=== PATIENT | female | born 1945 | race Caucasian/White ===

== ENCOUNTER 2019-02-14 09:52 | Day surgery (SDC) | payer OTHER ==
[2019-02-14] MEDS ORDERED: diphenhydrAMINE HCL 25 MG CAPSULE (FP) PO PRN (10:28)
[2019-02-14] MEDS ORDERED: HYDROCORTISONE SOD SUCCINATE 100 MG/2 ML VIAL IVPB PRN (10:29)
[2019-02-14] MEDS ORDERED: IRON SUCROSE INJECTION 200 MG in SODIUM CHLORIDE 100 ML IVPB ONE (11:00)
[2019-02-14 11:19] VITALS: BP 142/63; PULSE 77; TEMP 98.2
== END 2019-02-14 12:45 | disposition home or self-care (01) ==
LOC: JASU-ENDO 09:52
PROVIDERS: ATTEND Internal Medicine
PROC: 3E033GC Introduction of Other Therapeutic Substance into Peripheral Vein, Percutaneous Approach (ICD-10-PCS; principal; 2019-02-14)
DX: D50.9 Iron deficiency anemia, unspecified (principal)
CPT/HCPCS: 96365; J1756

== ENCOUNTER 2019-03-11 09:06 | Day surgery (SDC) | payer OTHER ==
[~2019-03-11 09:06] MED LIST: HYDROCORTISONE SOD SUCCINATE 100 MG/2 ML VIAL IVPUSH PRN; IRON SUCROSE INJECTION 200 MG in SODIUM CHLORIDE 100 ML IVPB ONE; diphenhydrAMINE HCL 50 MG CAPSULE PO PRN
[2019-03-11 10:55] VITALS: TEMP 98.9
[2019-03-11 11:21] VITALS: BP 121/64; PULSE 76
== END 2019-03-11 11:25 | disposition home or self-care (01) ==
LOC: JINFUSION 09:06
PROVIDERS: ATTEND Internal Medicine
PROC: 3E033GC Introduction of Other Therapeutic Substance into Peripheral Vein, Percutaneous Approach (ICD-10-PCS; principal; 2019-03-11)
DX: D50.9 Iron deficiency anemia, unspecified (principal)
CPT/HCPCS: 96365; J1756

== ENCOUNTER 2019-08-23 11:45 | Inpatient (IN) | payer OTHER ==
[2019-08-23 12:18] VITALS: BMI 58.9
--- NOTE | 2019-08-23 13:09 | PDOC ---
History of Present Illness - General Chief Complaint: SIRS, Suspected/Possible Stated Complaint: VOMITING/ WEAKNESS Time Seen by Provider: 08/23/19 12:27 - History of Present Illness Initial Comments: Sandra Weller is a 73yo woman with a PMH of HTN, HLD, NIDDM, hypythyroidism, GERD, OA who presents with 3 days of cough, now with nausea and unsteadiness while walking today. She states that she has had the dry cough for the past several days but has otherwise been feeling in her normal state of health. Today , she felt extremely nauseated and did not eat or drink anything today, fearing that she would start vomiting if she did. She went to her PMD this morning and reports she was told that she "probably has a virus" but was sent to the ED for additional workup. Ms Weller additionally reports that she has felt unsteady walking and slightly dizzy today. She denies any sensation of vertigo, and she does not believe that the dizziness worsens with change in position. She endorses a long history of rt ear tinnitus but denies any recent changes in this condition. She additionally denies any recent congestion, rhinorrhea, sore throat, fevers/ chills or other recent symptoms. She does report that she feels dehydrated today. Past History - Past Medical History Allergies/Adverse Reactions: Allergies Allergy/AdvReac Type Severity Reaction Status Date / Time oxycodone Allergy Verified 08/23/19 12:11 tuna oil Allergy Verified 08/23/19 12:11 Home Medications: Ambulatory Orders Aspirin Coated [Ecotrin -] 81 mg PO DAILY 12/27/11 Atorvastatin Ca [Lipitor] 20 mg PO DAILY 12/27/11 Diltiazem [Cardizem -] 420 mg PO DAILY 12/27/11 Glipizide/Metformin HCl [Metaglip 2.5-250 mg Tablet] 2 tab PO DAILY 12/27/11 Levothyroxine Sodium [Synthroid] 25 mcg PO DAILY 12/27/11 Losartan 50Mg/Hctz 12.5MG [Hyzaar -] 50 mg PO DAILY 12/27/11 Esomeprazole Mag Trihydrate [Nexium] 40 mg PO DAILY 09/09/13 Folic Acid 1 mg PO DAILY 02/14/19 Hydralazine HCl 25 mg PO DAILY 02/14/19 COPD: No Diabetes: Yes HTN: Yes Hypercholesterolemia: Yes Thyroid Disease: Yes - Surgical History Orthopedic Surgery: Yes (L FOOT/BILATERAL KNEE) - Psycho Social/Smoking Cessation Hx Smoking Status: No Smoking History: Never smoked Number of Cigarettes Smoked Daily: 0 Hx Alcohol Use: No Drug/Substance Use Hx: No Substance Use Type: None Review of Systems - Review of Systems Comments:: General: + fevers, no chills, no weight or appetite change, + malaise HEENT: No changes in vision, no changes in hearing, no congestion, no sore throat CV: No chest pain, no palpitations, no LE edema Pulm: No SOB, + cough, no wheezing GI: + nausea, no vomiting, no change in bowel habits, no melena : No frequency, no urgency, no dysuria Musc: No back pain, no joint swelling, no recent injury Skin: No rash, no lesions, no erythema Endo: No excessive thirst, no heat/cold intolerance Heme: No unusual bruising or bleeding, no swollen glands Neuro: No syncope, no numbness/tingling, no focal weakness Vasc: No claudication Psych: No recent change in mood, no SI or HI *Physical Exam - Vital Signs Last Vital Signs Temp Pulse Resp BP Pulse Ox 101.3 F H 95 H 20 102/46 L 84 L 08/23/19 12:14 08/23/19 12:14 08/23/19 12:14 08/23/19 12:14 08/23/19 12:14 - Physical Exam General: Comfortable, no acute distress HEENT: Atraumatic, PERRL, EOMI, MMM, voice normal, normal neck ROM Cards: RRR, no murmur appreciated Pulm: Comfortable on room air, clear to auscultation bilaterally Abd: Soft, nontender, nondistended Ext: Atraumatic. No LE edema. ROM intact. WWP Skin: Normal color, no rashes or lesions Neuro: A&Ox3, CN grossly intact, normal speech, motor/sensory grossly intact and symmetric Psych: Mood appropriate to situation ED Treatment Course - LABORATORY CBC & Chemistry Diagram: 08/23/19 13:07 08/23/19 13:07 Medical Decision Making - Medical Decision Making 08/23/19 12:55 Sandra Weller is a 73yo woman with a PMH of HTN, HLD, NIDDM, hypythyroidism, GERD, OA who presents with 3 days of cough, now with nausea and unsteadiness while walking today. She has not had any food or fluids today due to the nausea. She was seen earlier today by her PMD and sent to the ED for additional evaluation. - Hypoxic and febrile on presentation (sats now 89% on RA), dry mouth/lips also noted. Concerning for sepsis, dehydration. Pneumonia v influenza most likely, though could be viral flu-like illness - Sepsis workup - Influenza - IVF, acetaminophen 08/23/19 13:52 - Bedside US completed by Dr Lehman. B-lines on Rt lung US noted - Labs and CXR pending 08/23/19 14:13 - EKG reviewed. NSR, HR 78, normal axis, normal intervals, nonspecific ST abnormality - No leukocytosis. Remainder of labs pending - CXR to be completed. 08/23/19 16:48 - CXR without infiltrate, but pt appears to have pneumonia clinically. Will admit for additional management given hypoxia. Now at 94% w/ 2L by OH - Dr Thomas at bedside to admit Ms Weller Discussed with Dr Dante Gonzalez PGY2 Discharge - Discharge Information Problems reviewed: Yes Clinical Impression/Diagnosis: Hypoxia Sepsis Qualifiers: Sepsis type: sepsis due to unspecified organism Sepsis acute organ dysfunction status: without acute organ dysfunction Qualified Code(s): A41.9 - Sepsis, unspecified organism Pneumonia Qualifiers: Pneumonia type: due to unspecified organism Laterality: unspecified laterality Lung location: unspecified part of lung Qualified Code(s): J18.9 - Pneumonia, unspecified organism - Admission Yes - Follow up/Referral - Patient Discharge Instructions - Post Discharge Activity
[2019-08-23] MEDS ORDERED: ACETAMINOPHEN 1000 MG/100 ML VIAL (NON FORMULARY) IVPB ONE (13:47)
[2019-08-23] MEDS ORDERED: ACETAMINOPHEN INJECTION 100 ML IVPB ONE (13:48)
[2019-08-23 13:51] LABS: BASO % 0.4 % (0-2.0); EOS % 0.2 % (0-4.5); HEMOGLOBIN 12.3 GM/dL (10.7-15.3); LYMPH % 4.6 % (8-40); MCH 27.9 pg (25.7-33.7); MCHC 32.3 g/dl (32.0-36.0); MEAN CELL VOLUME 86.3 fl (80-96); MEAN PLT VOLUME 9.6 fl (7.5-11.1); MONO % 11.8 % (3.8-10.2); PLATELET COUNT 222 K/MM3 (134-434); RDW 20.4 % (11.6-15.6); WHITE BLOOD COUNT 9.2 K/mm3 (4.0-10.0)
[2019-08-23] MEDS ORDERED: SODIUM CHLORIDE 0.9% 500 ML INFUS.BAG IV ONE ×2 (13:58→14:37)
--- NOTE | 2019-08-23 13:59 | EKG ---
Test Reason : Blood Pressure : / mmHG Vent. Rate : 078 BPM Atrial Rate : 078 BPM P-R Int : 168 ms QRS Dur : 076 ms QT Int : 392 ms P-R-T Axes : 034 -26 092 degrees QTc Int : 446 ms POOR DATA QUALITY, INTERPRETATION MAY BE ADVERSELY AFFECTED NORMAL SINUS RHYTHM POSSIBLE LEFT ATRIAL ENLARGEMENT NONSPECIFIC ST ABNORMALITY ABNORMAL ECG Confirmed by GAIL STARK MD ([id number]) on 08/23/2019 1:59:45 PM Referred By: Confirmed By:GAIL STARK MD
[2019-08-23 14:10] LABS: INR 1.07 (0.83-1.09); PROTHROMBIN TIME (PATIENT) 12.6 SEC (9.7-13.0)
--- NOTE | 2019-08-23 14:10 | PDOC ---
Documentation entered by Nidia Coon SCRIBE, acting as scribe for Vincent Howell MD. Vincent Howell MD: This documentation has been prepared by the Jaymie steven Adrianna, SCRIBE, under my direction and personally reviewed by me in its entirety. I confirm that the documentation accurately reflects all work, treatment, procedures, and medical decision making performed by me. Attending Attestation - Resident Resident Name: Shandra Gonzalez - ED Attending Attestation I have performed the following: I have examined & evaluated the patient, The case was reviewed & discussed with the resident, I agree w/resident's findings & plan, Exceptions are as noted - HPI HPI: The patient is a 73 year old female, with a significant PMH of hypertension, hyperlipidemia, psy-hhqajpk-vwghqqzum diabetes, hypothyroid thyroidism, GERD, arthritis and left foot deformity, who presents to the ED for evaluation of cough for 3 days, and nausea and unsteady gait today. Patient endorses a dry cough for the past 3 days. Today, she developed nausea, and has been avoiding eating or drinking anything in fear of vomiting. She additionally reports feeling dizzy and unsteady when ambulating. Patient saw her PCP for these complaints, who advised her to come to the ED for further evaluation. Allergies: Oxycodone, tuna oil Surgical History:Left foot and bilateral knee orthopedic surgery Social History: Denies EtOH, tobacco, or illicit drug use PCP: Dr. Thomas - Physicial Exam PE: GENERAL: The patient is awake, alert, and fully oriented, Nontoxic - in no acute distress. HEAD: Normocephalic, atraumatic. EYES: extraocular movements intact, sclera anicteric, conjunctiva clear. ENT: Normal voice, Moist mucous membranes. NECK: Normal range of motion, supple LUNGS: Breath sounds equal, clear to auscultation bilaterally. No wheezes, no rhonchi, no rales. HEART: Regular rate and rhythm, without murmur, rub or gallop. ABDOMEN: Soft, nontender, No guarding, no rebound.No CVA tenderness EXTREMITIES: Normal range of motion, no edema. No cyanosis. No erythema, or tenderness. NEUROLOGICAL: No facial asymmetry, Normal speech, PSYCH: Normal mood, normal affect. SKIN: Warm, Dry, normal turgor. - Critical Care Time Total Critical Care Time: 60 Critical Care Statement: The care of this patient involved high complexity decision making to prevent further life threatening deterioration of the patient 's condition and/or to evaluate & treat vital organ system(s) failure or risk of failure. - Medical Decision Making 08/23/19 14:13 73 F with cough and nausea. Found to be febrile and hypoxic. Will evaluate for sepsis. Possible PNA. - Labs, cultures - CXR, UA - IVF, tylenol, abx
[2019-08-23 14:14] LABS: ACTIVATED PTT 29.7 SECONDS (25.2-36.5); BILIRUBIN,TOTAL 0.4 mg/dL (0.2-1); BLOOD UREA NITROGEN 16.2 mg/dL (7-18); CALCIUM 9.5 mg/dL (8.5-10.1); CREATININE 1.4 mg/dL (0.55-1.3); POTASSIUM 3.5 mmol/L (3.5-5.1); TOT PROT 7.8 g/dl (6.4-8.2)
[2019-08-23] MEDS ORDERED: CEFTRIAXONE 1,000 MG in DEXTROSE 5%-WATER - 50 ML IVPB ONE (15:16)
[2019-08-23] MEDS ORDERED: AZITHROMYCIN IVPB 500 MG in DEXTROSE 5%-WATER - 250 ML IVPB ONE (15:16)
[2019-08-23 16:35] LABS: PLATELET ESTIMATE ADEQUATE
--- NOTE | 2019-08-23 17:03 | HP ---
Admitting History and Physical - Admission Chief Complaint: 73 y.O F presented today with fever, generalized weakness, nausea, vomiting, difficulty tolerationg PO food/ fluids, cough, SOB, hypoxemia on on RA and was sent to ER [facility] History of Present Illness: DM type 2 on Jentadueto HLD Hypothyroidism Iron deficiency Anemia, GI bleed, HTN on Cardizem, Hydralazine, Losartan HCT Ascending AA repair at [facility] Psoriatic arthritis on Methotrexate Pancreatitis Spinal stenosis, s/p ostheoporotic vertebral fracture- on Prolia. Asthma/COPD Ankle surgeries. Umbilical hernia repair. History Source: Patient, Medical Record Limitations to Obtaining History: No Limitations - Past Medical History MAINTENANCE CHIEF: Yes: Peripheral Neuropathy, Vertigo. No: Alzheimer's, CVA, Dementia, Multiple Sclerosis, Parkinson's, Seizure Cardiovascular: Yes: Aneurysm, HTN, Hyperlipdemia, Murmur. No: CHF Pulmonary: Yes: Asthma. No: O2 Dependent, Sleep Apnea Gastrointestinal: Yes: GI Bleed, Pancreatitis, Peptic Ulcer Disease. No: Ascites, Constipation, Crohn's Disease, Irritable Bowel Disease, Ulcerative Colitis Heme/Onc: Yes: Anemia Rheumatology: Yes: Other (Psoriatic arthritis) Endocrine: Yes: Diabetes Mellitus, Hypothyroidism - Past Surgical History Past Surgical History: Yes: AAA Repair - Smoking History Smoking history: Never smoked Aproximately how many cigarettes per day: 0 - Alcohol/Substance Use Hx Alcohol Use: No - Social History Usual Living Arrangement: Yes: With Spouse Home Medications - Allergies Allergies/Adverse Reactions: Allergies Allergy/AdvReac Type Severity Reaction Status Date / Time oxycodone Allergy Verified 08/23/19 12:11 tuna oil Allergy Verified 08/23/19 12:11 - Home Medications Home Medications: Ambulatory Orders Aspirin Coated [Ecotrin -] 81 mg PO DAILY 12/27/11 Atorvastatin Ca [Lipitor] 20 mg PO DAILY 12/27/11 Diltiazem [Cardizem -] 420 mg PO DAILY 12/27/11 Glipizide/Metformin HCl [Metaglip 2.5-250 mg Tablet] 2 tab PO DAILY 12/27/11 Levothyroxine Sodium [Synthroid] 25 mcg PO DAILY 12/27/11 Losartan 50Mg/Hctz 12.5MG [Hyzaar -] 50 mg PO DAILY 12/27/11 Esomeprazole Mag Trihydrate [Nexium] 40 mg PO DAILY 09/09/13 Folic Acid 1 mg PO DAILY 02/14/19 Hydralazine HCl 25 mg PO DAILY 02/14/19 Family Medical History Family History: Unremarkable Review of Systems - Review of Systems Constitutional: reports: Lethargy, Loss of Appetite, Malaise, Weakness Eyes: reports: No Symptoms HENT: reports: Throat Pain Neck: denies: Decreased ROM, Tenderness Cardiovascular: reports: Shortness of Breath. denies: Chest Pain, Edema Respiratory: reports: Cough, SOB, SOB on Exertion. denies: Hemoptysis, Wheezing Gastrointestinal: reports: Nausea, Vomiting. denies: Abdominal Pain, Bloating Genitourinary: denies: Burning, Discharge, Dysuria Breasts: reports: No Symptoms Reported Musculoskeletal: reports: Back Pain, Decreased ROM, Muscle Pain Integumentary: reports: No Symptoms Neurological: denies: Change in LOC, Change in Speech, Confusion, Seizure, Unsteady Gait, Weakness Endocrine: reports: Excessive Sweating, Intolerance to Cold, Intolerance to Heat Hematology/Lymphatic: denies: Easily Bruised, Excessive Bleeding, Swollen Glands Psychiatric: reports: No Symptoms Physical Examination Vital Signs: Vital Signs Temperature 100.0 F H 08/23/19 15:29 Pulse Rate 71 08/23/19 15:29 Respiratory Rate 18 08/23/19 15:29 Blood Pressure 111/60 08/23/19 15:29 O2 Sat by Pulse Oximetry (%) 97 08/23/19 15:29 Constitutional: Yes: Anxious, Ashen, Diaphoresis, Moderate Distress Eyes: Yes: Conjunctiva Clear, EOM Intact HENT: Yes: Atraumatic, Normocephalic, Pharyngeal Erythema Neck: Yes: Supple, Trachea Midline. No: Lymphadenopathy, Rigid Cardiovascular: Yes: Regular Rate and Rhythm, S1, S2. No: JVD Respiratory: Yes: Regular, CTA Bilaterally, On Nasal O2. No: Accessory Muscle Use Gastrointestinal: Yes: Normal Bowel Sounds, Soft, Hepatomegaly. No: Abdomen, Obese, Ascites, Hypoactive Bowel Sounds, Splenomegaly, Tenderness, Tenderness, Epigastrium ...Rectal Exam: Yes: Deferred Renal/: No: Anuria, Bladder Distention, CVA Tenderness - Left, CVA Tenderness - Right Breast(s): Yes: WNL Musculoskeletal: Yes: Back Pain Extremities: Yes: Deformity. No: Amputation, Calf Tenderness, Cold Peripheral Pulses WNL: No Integumentary: Yes: WNL Neurological: Yes: Alert, Oriented, Tingling, Unsteady Gait, Weakness. No: Aphasia, Facial Droop, Lethargy, Seizure, Unresponsive ...Motor Strength: WNL Psychiatric: Yes: WNL Labs: CBC, BMP 08/23/19 13:07 08/23/19 13:07 Imaging - Results Chest X-ray: Report Reviewed Problem List - Problems (1) Hypoxia Assessment/Plan: O2 supplementation NC Pulm consult CT chest Code(s): R09.02 - HYPOXEMIA (2) Pneumonia Assessment/Plan: CT chest ID consult Iv ceftriaxone. Code(s): J18.9 - PNEUMONIA, UNSPECIFIED ORGANISM Qualifiers: Pneumonia type: due to unspecified organism Laterality: unspecified laterality Lung location: unspecified part of lung Qualified Code(s): J18.9 - Pneumonia, unspecified organism (3) Sepsis Assessment/Plan: Lactate 3.0 repeat :actate afte 30 ml/kg fluids. Bld cx-P Code(s): A41.9 - SEPSIS, UNSPECIFIED ORGANISM Qualifiers: Sepsis type: sepsis due to unspecified organism Sepsis acute organ dysfunction status: without acute organ dysfunction Qualified Code(s): A41.9 - Sepsis, unspecified organism (4) Arthritis Assessment/Plan: Hold Metotrexate for now. Code(s): M19.90 - UNSPECIFIED OSTEOARTHRITIS, UNSPECIFIED SITE (5) Diabetes 1.5, managed as type 1 Assessment/Plan: BGM Sliding scale Levemir 10 units Qd Code(s): E13.9 - OTHER SPECIFIED DIABETES MELLITUS WITHOUT COMPLICATIONS (6) HTN (hypertension) Assessment/Plan: Cardizem, hydralazine, ARB PO. Code(s): I10 - ESSENTIAL (PRIMARY) HYPERTENSION Qualifiers: Hypertension type: essential hypertension Qualified Code(s): I10 - Essential (primary) hypertension
[2019-08-23] MEDS ORDERED: ACETAMINOPHEN 500 MG TABLET (FP) PO PRN (17:23)
[2019-08-23] MEDS ORDERED: ONDANSETRON 4 MG/2 ML VIAL IVPB PRN (17:24)
--- NOTE | 2019-08-23 18:21 | PN ---
Progress Note (short form) - Note Progress Note: ID consult dictated 73 yo female admitted from home with dizziness and nausea this am she has had uri symptoms with runny nose and mild cough for last 2-3 days no diarrhea, no dysuria no chills takes humira and methotrexate for her psoriatic arthritis history of aneurysm repair April 2018 found to be febrile in ED, also hypoxia lactic acid 3- no better after ivf going for chest ct got rocephin/ziithromax in ED sepsis r/o pneumonia immunocompromised host by meds blood cultures urinary antigens chest ct UA and urine culture vancomycin rocephin/zithromax to continue Problem List - Problems (1) Sepsis Code(s): A41.9 - SEPSIS, UNSPECIFIED ORGANISM Qualifiers: Sepsis type: sepsis due to unspecified organism Sepsis acute organ dysfunction status: without acute organ dysfunction Qualified Code(s): A41.9 - Sepsis, unspecified organism (2) Pneumonia Code(s): J18.9 - PNEUMONIA, UNSPECIFIED ORGANISM Qualifiers: Pneumonia type: due to unspecified organism Laterality: unspecified laterality Lung location: unspecified part of lung Qualified Code(s): J18.9 - Pneumonia, unspecified organism (3) Immunocompromised state due to drug therapy Code(s): Z79.899 - OTHER SENIOR CARE (CURRENT) DRUG THERAPY
[2019-08-23] MEDS ORDERED: VANCOMYCIN 1 GRAM (PRE-DOCKED) 1,000 MG/250 ML BAG IVPB ONE (18:25)
--- NOTE | 2019-08-23 19:58 | CONS ---
DATE OF CONSULTATION: 08/23/2019 INFECTIOUS DISEASE CONSULTATION REQUESTED BY: Mono Thomas MD This is a 73-year-old female with a history of hypertension, bij-[id number]-rexnycmvt diabetes mellitus and psoriatic arthritis. She presents to the ER today with complaints of dizziness for the last two or three days. She has been feeling like she has had a upper respiratory tract infection with a stuffed nose, minimal cough. This morning, she started having nausea and dizziness but she denies any chills at home. She does not recall having any fever. She has not vomited. She has no diarrhea. There is no history of any travel. She has not had any sick contacts. She denies abdominal pain or chest pain. She lives with her , who is well. She saw her PCP for these complaints, who sent her to the ER. She had fever of 101 in the ER on arrival with a heart rate of 95. Blood pressure was 102/46. Her O2 saturation on admission was 84% with improvement in her fever. Her current temperature was 100 with an O2 saturation of 97%. She received IV hydration in the ER with improvement. She has now consumed a whole bottle of water and is feeling somewhat improved. PAST MEDICAL HISTORY: Notable for type 2 diabetes, hyperlipidemia, hypothyroidism, anemia, GI bleed, hypertension, psoriatic arthritis, pancreatitis, asthma, COPD. PAST SURGICAL HISTORY: Status post ascending aorta repair at [facility] in April 2018. The surgery went very well. There were no complications. She has had surgery on her left foot and has had an umbilical hernia repair. CURRENT MEDICATIONS: Ecotrin, atorvastatin, Cardizem, Metaglip, Synthroid, Hyzaar, Nexium, folic acid and hydralazine. She is also on weekly methotrexate and takes Humira every two weeks. SOCIAL HISTORY: She is originally from [place]. There is no history of cigarette or substance use. She lives with her spouse. FAMILY HISTORY: Unremarkable. REVIEW OF SYSTEMS: She denies pharyngitis. She has no headache. She reports minimal cough and denies any hemoptysis. She is not wheezing. She notes nausea but on vomiting. There is no abdominal pain or diarrhea. She has no dysuria or flank pain. She has no skin rash or breaks in her skin. PHYSICAL EXAMINATION: VITALS: T-max is 101.8, current temperature is 100, pulse is 71, blood pressure 111/60, respiratory rate 18, oxygen saturation 97% on 2 liters. HEENT: Normocephalic. Eyes are anicteric. She has no conjunctival hemorrhages. Her mouth is without any pharyngitis. NECK: Supple. There are no meningeal signs. LUNGS: Clear to auscultation. HEART: Regular rate and rhythm. ABDOMEN: Soft, nontender. No CVA or spinal tenderness. EXTREMITIES: No edema. Her left foot has a deformity. SKIN: There is no skin breakdown. She has no rash. LABS: White count is 9.2, hemoglobin 12.3, platelets of 222,000 with 83% lymphocytes. Her INR is 1. BUN and creatinine are 16 and 1.4. Lactic acid is 3. LFTs are normal. Influenza screen is negative. Blood cultures have been sent and are pending. To my reading, her chest x-ray is negative. IN SUMMARY: This is an elderly woman, immunocompromised by virtue of her psoriatic arthritis, on methotrexate and Humira. She presents with what appears to be a viral syndrome with URI symptoms and now with dizziness and fever of unclear etiology. She has been given fluids. She has been given ceftriaxone and Zithromax. A CAT scan of her chest has been ordered. She is now resting quite comfortably. We will give her one dose of vancomycin as well, as the source of her sepsis is unclear. She needs a urinalysis and urine culture. Would also obtain a Legionella urinary antigen and follow up on the CAT scan. QUINTON WALTON M.D. [id number]
[2019-08-23] MEDS: hydrALAZINE HCL 25 MG TABLET (FP) PO SCH (21:48)
[2019-08-23] MEDS: ATORVASTATIN CA 20 MG TABLET (FP) PO SCH (21:49)
[2019-08-23] MEDS: DOCUSATE SODIUM 100 MG CAPSULE (FP) PO SCH (21:49)
[2019-08-23] MEDS: INSULIN SLIDING SCALE (NOVOLOG) 1 VIAL SQ SCH (21:56)
[2019-08-24] MEDS: hydrALAZINE HCL 25 MG TABLET (FP) PO SCH ×3 (06:06→21:11)
[2019-08-24] MEDS: INSULIN SLIDING SCALE (NOVOLOG) 1 VIAL SQ SCH ×4 (06:06→21:10)
[2019-08-24 09:52] LABS: BASO % 0.3 % (0-2.0); EOS % 0.3 % (0-4.5); HEMATOCRIT 36.6 % (32.4-45.2); HEMOGLOBIN 11.9 GM/dL (10.7-15.3); LYMPH % 14.3 % (8-40); MCH 27.7 pg (25.7-33.7); MCHC 32.4 g/dl (32.0-36.0); MEAN CELL VOLUME 85.4 fl (80-96); MEAN PLT VOLUME 8.8 fl (7.5-11.1); NEUT % 68.1 % (42.8-82.8); PLATELET COUNT 199 K/MM3 (134-434); RBC 4.29 M/mm3 (3.60-5.2); RDW 19.6 % (11.6-15.6); WHITE BLOOD COUNT 6.3 K/mm3 (4.0-10.0)
[2019-08-24] MEDS ORDERED: TIOTROPIUM BROMIDE 2.5 MCG (SPIRIVA) RESPIMAT INHALER IH SCH (10:00)
[2019-08-24 10:19] LABS: ALBUMIN 3.6 g/dl (3.4-5.0); BILIRUBIN,TOTAL 0.4 mg/dL (0.2-1); CALCIUM 8.7 mg/dL (8.5-10.1); CREATININE 0.9 mg/dL (0.55-1.3); MAGNESIUM 1.7 mg/dL (1.8-2.4); PHOSPHOROUS 2.6 mg/dL (2.5-4.9); TOT PROT 6.8 g/dl (6.4-8.2)
[2019-08-24] MEDS ORDERED: cefTRIAXone SODIUM 1 GM VIAL ONE (10:32)
[2019-08-24] MEDS ORDERED: DEXTROSE 5%-WATER - 50 ML IVPB ONE (10:32)
[2019-08-24 10:49] LABS: POTASSIUM 2.9 mmol/L (3.5-5.1)
[2019-08-24] MEDS: PANTOPRAZOLE 40 MG TABLET PO SCH (11:06)
[2019-08-24] MEDS: LOSARTAN POTASSIUM 50 MG TABLET (FP) PO SCH (11:06)
[2019-08-24] MEDS: MAGNESIUM OXIDE 400 MG TABLET (FP) PO SCH (11:06)
[2019-08-24] MEDS: ASPIRIN COATED 81 MG TABLET.EC PO SCH (11:06)
[2019-08-24] MEDS: CEFTRIAXONE 1 GM in DEXTROSE 5%-WATER - 50 ML IVPB SCH (11:07)
[2019-08-24] MEDS: LACTATED RINGERS SOLUTION 1,000 ML/1,000 ML INFUS.BAG IV SCH ×3 (11:23→17:45)
--- NOTE | 2019-08-24 11:32 | PN ---
Progress Note (short form) - Note Progress Note: minimal cough minimal nausea feels better didn't sleep due to roommate not dizzy received influenza vaccine reports taking humira every two weeks, methotrexate every week and oral potassium daily no diarrhea ate breakfast still some lowgrade fevers Vital Signs Period Temp Pulse Resp BP Sys/Grover Pulse Ox Last 24 Hr 99 F-101.3 F 62-96 18-20 102-144/46-62 84-97 cor-rrr lungs clear abd soft,nt ext no edema chest ct with small RLL infiltrate, possible RUL early infiltrate CBC, BMP 08/24/19 09:00 08/24/19 09:00 Microbiology 08/24/19 06:22 Urine For Antigen Detection Legionella Antigen - Preliminary 08/24/19 06:22 Urine For Antigen Detection Streptococcus pneumoniae Antigen (M - Preliminary a/p sepsis pneumonia RLL immunocompromised host by meds for psoriatic arthritis history of aneurysm repair blood cultures urinary antigens UA and urine culture-never sent! d/w nursing staff vancomycin given - f/u cultures rocephin/zithromax to continue
[2019-08-24] MEDS ORDERED: MAGNESIUM SULF 50% (8.12 MEQ/2 ML-1 GM VIAL) IVPB ONE ×2 (11:36→18:00)
--- NOTE | 2019-08-24 11:43 | PN ---
Progress Note, Physician Chief Complaint: sob History of Present Illness: patient feeling ok today, a little better, less SOB, still coughing - Current Medication List Current Medications: Active Medications Acetaminophen (Tylenol -) 500 mg PO Q6H PRN PRN Reason: FEVER Aspirin (Ecotrin -) 81 mg PO DAILY [facility] Last Admin: 08/24/19 11:06 Dose: 81 mg Atorvastatin Calcium (Lipitor -) 20 mg PO HS [facility] Last Admin: 08/23/19 21:49 Dose: 20 mg Diltiazem HCl (Cardizem Cd -) 180 mg PO DAILY [facility] Docusate Sodium (Colace -) 300 mg PO HS [facility] Last Admin: 08/23/19 21:49 Dose: 300 mg Folic Acid (Folic Acid -) 1 mg PO DAILY [facility] Hydralazine HCl (Apresoline -) 25 mg PO TID [facility] Last Admin: 08/24/19 06:06 Dose: 25 mg Ceftriaxone Sodium 1 gm/ (Dextrose) 50 mls @ 200 mls/hr IVPB DAILY [facility]; Protocol Last Admin: 08/24/19 11:07 Dose: 200 mls/hr Lactated Ringer's (Lactated Ringers Solution) 1,000 ml in 1,000 mls @ 83 mls/ hr IV ASDIR [facility] Last Admin: 08/24/19 11:23 Dose: 83 mls/hr Azithromycin 500 mg/ Dextrose 250 mls @ 250 mls/hr IVPB Q24H [facility] Potassium Chloride (Potassium Chloride 10 Meq Premix Ivpb -) 10 meq in 100 mls @ 100 mls/hr IVPB Q60M [facility] Stop: 08/24/19 14:44 Insulin Aspart (Novolog Vial Sliding Scale -) 1 vial SQ ACHS [facility]; Protocol Last Admin: 08/24/19 06:06 Dose: Not Given Levothyroxine Sodium (Synthroid -) 25 mcg PO DAILY@0700 [facility] Losartan Potassium (Cozaar -) 50 mg PO DAILY [facility] Last Admin: 08/24/19 11:06 Dose: 50 mg Magnesium Oxide (Mag-Ox -) 400 mg PO DAILY [facility] Last Admin: 08/24/19 11:06 Dose: 400 mg Magnesium Sulfate (Magnesium Sulfate) 1 gm IVPB ONCE ONE Stop: 08/24/19 11:37 Metformin HCl (Glucophage Xr -) 750 mg PO DAILY@0700 [facility] Pantoprazole Sodium (Protonix -) 40 mg PO DAILY [facility] Last Admin: 08/24/19 11:06 Dose: 40 mg Potassium Chloride (K-Dur -) 40 meq PO ONCE ONE Stop: 08/24/19 11:37 Potassium Chloride (K-Dur -) 20 meq PO DAILY [facility] Tiotropium Ambrose (Spiriva Respimat) 2 puff IH DAILY [facility] Last Admin: 08/24/19 11:08 Dose: 2 puff - Objective Vital Signs: Vital Signs Temperature 99.2 F 08/24/19 09:00 Pulse Rate 82 08/24/19 09:00 Respiratory Rate 18 08/24/19 09:00 Blood Pressure 131/58 L 08/24/19 09:00 O2 Sat by Pulse Oximetry (%) 96 08/23/19 21:00 Constitutional: Yes: Well Nourished, No Distress, Calm Cardiovascular: Yes: WNL, Regular Rate and Rhythm Respiratory: Yes: Cough, Rhonchi (at bases), Other (good air entry). No: Accessory Muscle Use, Poor Air Entry Gastrointestinal: Yes: WNL, Normal Bowel Sounds, Soft Extremities: Yes: WNL Edema: No Labs: CBC, BMP 08/24/19 09:00 08/24/19 09:00 INR, PTT INR 1.07 (0.83-1.09) 08/23/19 13:07 Problem List - Problems (1) Diabetes 1.5, managed as type 1 Code(s): E13.9 - OTHER SPECIFIED DIABETES MELLITUS WITHOUT COMPLICATIONS (2) HTN (hypertension) Code(s): I10 - ESSENTIAL (PRIMARY) HYPERTENSION Qualifiers: Hypertension type: essential hypertension Qualified Code(s): I10 - Essential (primary) hypertension (3) Hypoxia Code(s): R09.02 - HYPOXEMIA (4) Pneumonia Code(s): J18.9 - PNEUMONIA, UNSPECIFIED ORGANISM Qualifiers: Pneumonia type: due to unspecified organism Laterality: unspecified laterality Lung location: unspecified part of lung Qualified Code(s): J18.9 - Pneumonia, unspecified organism (5) Sepsis Code(s): A41.9 - SEPSIS, UNSPECIFIED ORGANISM Qualifiers: Sepsis type: sepsis due to unspecified organism Sepsis acute organ dysfunction status: without acute organ dysfunction Qualified Code(s): A41.9 - Sepsis, unspecified organism Assessment/Plan Assessment: Sepsis RLL pnemonia Psoriatic arthritis AAA repair DM HTN Hypokalemia Hypomagnesemia Plan: -continue with rocephin/azithro, given vanco-immunocompromised -check serologies, urine anitgens -cultures pending -replete lytes and monitor -resume metformin, hold gliptins, ISS for coverage -resume home BP meds -ID eval
[2019-08-24] MEDS ORDERED: POTASSIUM CHLORIDE TABS 20 MEQ TABLET.ER (FP) PO ONE (11:45)
[2019-08-24] MEDS: KCL 10 MEQ IVPB 10 MEQ/100 ML INFUS.BAG IVPB SCH ×3 (12:50→21:11)
[2019-08-24] MEDS: FOLIC ACID 1 MG TABLET (FP) PO SCH (12:50)
--- NOTE | 2019-08-24 12:54 | CON.PULM ---
Consult Consult Specialty:: PULMONARY Referred by:: PMD Reason for Consultation:: SOB/COUGH - History of Present Illness Chief Complaint: SOB/COUGH History of Present Illness: 73yo woman with a PMH of HTN, HLD, NIDDM, hypythyroidism, GERD, OA who presents with 3 days of cough, now with nausea and unsteadiness while walking today. She states that she has had the dry cough for the past several days but has otherwise been feeling in her normal state of health. She went to her PMD this morning and reports she was told that she "probably has a virus" but was sent to the ED for additional workup. - History Source History Provided By: Patient, Medical Record Limitations to Obtaining History: Language Barrier - Past Medical History [employer]: Yes: Peripheral Neuropathy, Vertigo. No: Alzheimer's, CVA, Dementia, Multiple Sclerosis, Parkinson's, Seizure Cardio/Vascular: Yes: Aneurysm, HTN, Hyperlipdemia, Murmur. No: CHF Pulmonary: Yes: Asthma. No: O2 Dependent, Sleep Apnea Gastrointestinal: Yes: GI Bleed, Pancreatitis, Peptic Ulcer Disease. No: Ascites, Constipation, Crohn's Disease, Irritable Bowel Disease, Ulcerative Colitis Rheumatology: Yes: Other (Psoriatic arthritis) Endocrine: Yes: Diabetes Mellitus, Hypothyroidism - Past Surgical History Past Surgical History: Yes: AAA Repair - Alcohol/Substance Use Hx Alcohol Use: No - Smoking History Smoking history: Never smoked Aproximately how many cigarettes per day: 0 Home Medications - Allergies Allergies/Adverse Reactions: Allergies Allergy/AdvReac Type Severity Reaction Status Date / Time oxycodone Allergy Verified 08/23/19 12:11 tuna oil Allergy Verified 08/23/19 12:11 - Home Medications Home Medications: Ambulatory Orders Aspirin Coated [Ecotrin -] 81 mg PO DAILY 12/27/11 Atorvastatin Ca [Lipitor] 20 mg PO DAILY 12/27/11 Diltiazem [Cardizem -] 420 mg PO DAILY 12/27/11 Glipizide/Metformin HCl [Metaglip 2.5-250 mg Tablet] 2 tab PO DAILY 12/27/11 Levothyroxine Sodium [Synthroid] 25 mcg PO DAILY 12/27/11 Losartan 50Mg/Hctz 12.5MG [Hyzaar -] 50 mg PO DAILY 12/27/11 Esomeprazole Mag Trihydrate [Nexium] 40 mg PO DAILY 09/09/13 Folic Acid 1 mg PO DAILY 02/14/19 Hydralazine HCl 25 mg PO DAILY 02/14/19 Family Medical History Family History: Unremarkable Review of Systems - Review of Systems Respiratory: reports: Cough, Exercise Intolerance, SOB on Exertion. denies: Hemoptysis, Wheezing Gastrointestinal: reports: Abdominal Pain, Nausea, Vomiting Physical Exam Vital Sings: Vital Signs Temperature 99.2 F 08/24/19 09:00 Pulse Rate 82 08/24/19 09:00 Respiratory Rate 18 08/24/19 09:00 Blood Pressure 131/58 L 08/24/19 09:00 O2 Sat by Pulse Oximetry (%) 96 08/23/19 21:00 Constitutional: Yes: Calm Eyes: Yes: EOM Intact HENT: Yes: Normocephalic Neck: Yes: Trachea Midline Cardiovascular: Yes: Regular Rate and Rhythm, S1, S2 Respiratory: Yes: Diminished Gastrointestinal: Yes: Normal Bowel Sounds Edema: No Labs: CBC, BMP 08/24/19 09:00 08/24/19 09:00 Imaging - Results Chest X-ray: Report Reviewed, Image Reviewed Cat Scan: Report Reviewed, Image Reviewed Problem List - Problems (1) COPD (chronic obstructive pulmonary disease) Code(s): J44.9 - CHRONIC OBSTRUCTIVE PULMONARY DISEASE, UNSPECIFIED (2) Diabetes 1.5, managed as type 1 Code(s): E13.9 - OTHER SPECIFIED DIABETES MELLITUS WITHOUT COMPLICATIONS (3) HTN (hypertension) Code(s): I10 - ESSENTIAL (PRIMARY) HYPERTENSION Qualifiers: Hypertension type: essential hypertension Qualified Code(s): I10 - Essential (primary) hypertension (4) Hypoxia Code(s): R09.02 - HYPOXEMIA (5) Pneumonia Code(s): J18.9 - PNEUMONIA, UNSPECIFIED ORGANISM Qualifiers: Pneumonia type: due to unspecified organism Laterality: unspecified laterality Lung location: unspecified part of lung Qualified Code(s): J18.9 - Pneumonia, unspecified organism Assessment/Plan O2 NEEDED/DUONEB/CHEST PT/ANTIBIOTICS GYLCEMIC CONTROL RAPID FLU NEGATIVE F/U CT CHEST OUTPATIENT 6 WEEKS Shelley GLASER MD
[2019-08-24 13:56] LABS: ANISOCYTOSIS 1+; MACROCYTOSIS 1+; OVALOCYTE 1+; PLATELET ESTIMATE NORMAL
[2019-08-24] MEDS: ALBUTEROL SO4 2.5/IPRATROPIUM 0.5 INH SOL 3 ML VIAL.NEB. NEB SCH ×2 (14:20→20:00)
[2019-08-24] MEDS: AZITHROMYCIN IVPB 500 MG/250 ML BAG IVPB SCH (16:04)
[2019-08-24] MEDS: DOCUSATE SODIUM 100 MG CAPSULE (FP) PO SCH (21:10)
[2019-08-24] MEDS: ATORVASTATIN CA 20 MG TABLET (FP) PO SCH (21:11)
[2019-08-25] MEDS: LACTATED RINGERS SOLUTION 1,000 ML/1,000 ML INFUS.BAG IV SCH ×2 (06:21→18:53)
[2019-08-25] MEDS: INSULIN SLIDING SCALE (NOVOLOG) 1 VIAL SQ SCH ×4 (06:33→22:03)
[2019-08-25] MEDS: LEVOTHYROXINE NA 25 MCG TABLET (FP) PO SCH (06:34)
[2019-08-25] MEDS: hydrALAZINE HCL 25 MG TABLET (FP) PO SCH ×3 (06:34→22:02)
[2019-08-25] MEDS: ALBUTEROL SO4 2.5/IPRATROPIUM 0.5 INH SOL 3 ML VIAL.NEB. NEB SCH ×3 (08:12→20:38)
[2019-08-25 08:32] LABS: BASO % 0.6 % (0-2.0); EOS % 1.1 % (0-4.5); HEMATOCRIT 36.4 % (32.4-45.2); HEMOGLOBIN 12.1 GM/dL (10.7-15.3); LYMPH % 18.5 % (8-40); MCH 28.6 pg (25.7-33.7); MCHC 33.2 g/dl (32.0-36.0); MEAN PLT VOLUME 9.1 fl (7.5-11.1); MONO % 20.8 % (3.8-10.2); PLATELET COUNT 197 K/MM3 (134-434); RBC 4.23 M/mm3 (3.60-5.2); RDW 20.3 % (11.6-15.6); WHITE BLOOD COUNT 5.3 K/mm3 (4.0-10.0)
[2019-08-25 09:04] LABS: BLOOD UREA NITROGEN 8.5 mg/dL (7-18); CALCIUM 8.7 mg/dL (8.5-10.1); CREATININE 0.8 mg/dL (0.55-1.3)
[2019-08-25] MEDS ORDERED: POTASSIUM CHLORIDE TABS 20 MEQ TABLET.ER (FP) PO ONE (10:15)
[2019-08-25 10:42] LABS: ANISOCYTOSIS 1+; MACROCYTOSIS 1+; PLATELET ESTIMATE NORMAL
[2019-08-25] MEDS ORDERED: DEXTROSE 5%-WATER - 50 ML IVPB ONE (10:56)
[2019-08-25] MEDS ORDERED: cefTRIAXone SODIUM 1 GM VIAL ONE (10:56)
[2019-08-25] MEDS: PANTOPRAZOLE 40 MG TABLET PO SCH (11:32)
[2019-08-25] MEDS: FOLIC ACID 1 MG TABLET (FP) PO SCH (11:32)
[2019-08-25] MEDS: POTASSIUM CHLORIDE TABS 20 MEQ TABLET.ER (FP) PO ONE ×2 (11:32→12:22)
[2019-08-25] MEDS: MAGNESIUM OXIDE 400 MG TABLET (FP) PO SCH (11:33)
[2019-08-25] MEDS: ASPIRIN COATED 81 MG TABLET.EC PO SCH (11:33)
[2019-08-25] MEDS: LOSARTAN POTASSIUM 50 MG TABLET (FP) PO SCH (11:33)
[2019-08-25] MEDS: POTASSIUM CHLORIDE TABS 20 MEQ TABLET.ER (FP) PO SCH (11:34)
[2019-08-25] MEDS: CEFTRIAXONE 1 GM in DEXTROSE 5%-WATER - 50 ML IVPB SCH (11:34)
--- NOTE | 2019-08-25 11:40 | PN ---
Progress Note (short form) - Note Progress Note: PULMONARY SITTING UP FAMILY PRESENT WANTS TO GO HOME VSS/AFEBRILE Constitutional: Yes: Calm Eyes: Yes: EOM Intact HENT: Yes: Normocephalic Neck: Yes: Trachea Midline Cardiovascular: Yes: Regular Rate and Rhythm, S1, S2 Respiratory: Yes: Diminished Gastrointestinal: Yes: Normal Bowel Sounds Edema: No Labs: NOTED CHECK PRE/POST AMB SPO2 R/A - Problems (1) COPD (chronic obstructive pulmonary disease) Code(s): J44.9 - CHRONIC OBSTRUCTIVE PULMONARY DISEASE, UNSPECIFIED (2) Diabetes 1.5, managed as type 1 Code(s): E13.9 - OTHER SPECIFIED DIABETES MELLITUS WITHOUT COMPLICATIONS (3) HTN (hypertension) Code(s): I10 - ESSENTIAL (PRIMARY) HYPERTENSION Qualifiers: Hypertension type: essential hypertension Qualified Code(s): I10 - Essential (primary) hypertension (4) Hypoxia Code(s): R09.02 - HYPOXEMIA (5) Pneumonia Code(s): J18.9 - PNEUMONIA, UNSPECIFIED ORGANISM Qualifiers: Pneumonia type: due to unspecified organism Laterality: unspecified laterality Lung location: unspecified part of lung Qualified Code(s): J18.9 - Pneumonia, unspecified organism Assessment/Plan O2 NEEDED/DUONEB/CHEST PT/ANTIBIOTICS GYLCEMIC CONTROL RAPID FLU NEGATIVE F/U CT CHEST OUTPATIENT 6 WEEKS CHECK PRE/POST SPO2 R/A NO OBJECTION TO DISCHARGE PLANNING Shelley GLASER MD Problem List - Problems (1) COPD (chronic obstructive pulmonary disease) Code(s): J44.9 - CHRONIC OBSTRUCTIVE PULMONARY DISEASE, UNSPECIFIED (2) Diabetes 1.5, managed as type 1 Code(s): E13.9 - OTHER SPECIFIED DIABETES MELLITUS WITHOUT COMPLICATIONS (3) HTN (hypertension) Code(s): I10 - ESSENTIAL (PRIMARY) HYPERTENSION Qualifiers: Hypertension type: essential hypertension Qualified Code(s): I10 - Essential (primary) hypertension (4) Hypoxia Code(s): R09.02 - HYPOXEMIA (5) Pneumonia Code(s): J18.9 - PNEUMONIA, UNSPECIFIED ORGANISM Qualifiers: Pneumonia type: due to unspecified organism Laterality: unspecified laterality Lung location: unspecified part of lung Qualified Code(s): J18.9 - Pneumonia, unspecified organism
--- NOTE | 2019-08-25 12:14 | PN ---
Progress Note (short form) - Note Progress Note: low grade temperature overnight cough resolved, now eating reports taking humira every two weeks, methotrexate every week and oral potassium daily no diarrhea Vital Signs Period Temp Pulse Resp BP Sys/Grover Pulse Ox Last 24 Hr 98.8 F-99.7 F 73-82 18-18 119-156/49-88 95 cor-rrr lungs clear abd soft,nt ext no edema chest ct with small RLL infiltrate, possible RUL early infiltrate CBC, BMP 08/25/19 07:00 08/25/19 07:00 Microbiology 08/23/19 13:07 Blood - Peripheral Venous Blood Culture - Preliminary NO GROWTH OBTAINED AFTER 24 HOURS, INCUBATION TO CONTINUE FOR 4 DAYS. 08/23/19 13:07 Blood - Peripheral Venous Blood Culture - Preliminary NO GROWTH OBTAINED AFTER 24 HOURS, INCUBATION TO CONTINUE FOR 4 DAYS. 08/24/19 06:22 Urine For Antigen Detection Legionella Antigen - Final 08/24/19 06:22 Urine For Antigen Detection Streptococcus pneumoniae Antigen (M - Final a/p sepsis pneumonia RLL immunocompromised host by meds for psoriatic arthritis history of aneurysm repair doing well would continue rocephin/zithromax still requiring oxygen consider d/c home tomorrow if she continues to improve
--- NOTE | 2019-08-25 15:15 | PN ---
Progress Note, Physician Chief Complaint: sob History of Present Illness: patient feeling much better today, walking around halls, wants to go home - Current Medication List Current Medications: Active Medications Acetaminophen (Tylenol -) 500 mg PO Q6H PRN PRN Reason: FEVER Albuterol/Ipratropium (Duoneb -) 1 amp NEB RTID [facility] Last Admin: 08/25/19 14:18 Dose: 1 amp Aspirin (Ecotrin -) 81 mg PO DAILY [facility] Last Admin: 08/25/19 11:33 Dose: 81 mg Atorvastatin Calcium (Lipitor -) 20 mg PO [facility] Last Admin: 08/24/19 21:11 Dose: 20 mg Diltiazem HCl (Cardizem Cd -) 180 mg PO DAILY [facility] Last Admin: 08/24/19 17:45 Dose: 180 mg Docusate Sodium (Colace -) 300 mg PO [facility] Last Admin: 08/24/19 21:10 Dose: 300 mg Folic Acid (Folic Acid -) 1 mg PO DAILY [facility] Last Admin: 08/25/19 11:32 Dose: 1 mg Hydralazine HCl (Apresoline -) 25 mg PO TID [facility] Last Admin: 08/25/19 06:34 Dose: 25 mg Ceftriaxone Sodium 1 gm/ (Dextrose) 50 mls @ 200 mls/hr IVPB DAILY [facility]; Protocol Last Admin: 08/25/19 11:34 Dose: 200 mls/hr Lactated Ringer's (Lactated Ringers Solution) 1,000 ml in 1,000 mls @ 83 mls/ hr IV ASDIR [facility] Last Admin: 08/25/19 06:21 Dose: 83 mls/hr Azithromycin (Zithromax 500mg Ivpb (Pre-Docked)) 500 mg in 250 mls @ 250 mls/ hr IVPB Q24H [facility] Last Admin: 08/24/19 16:04 Dose: 250 mls/hr Insulin Aspart (Novolog Vial Sliding Scale -) 1 vial SQ ACHS [facility]; Protocol Last Admin: 08/25/19 11:34 Dose: Not Given Levothyroxine Sodium (Synthroid -) 25 mcg PO DAILY@0700 [facility] Last Admin: 08/25/19 06:34 Dose: 25 mcg Losartan Potassium (Cozaar -) 50 mg PO DAILY [facility] Last Admin: 08/25/19 11:33 Dose: 50 mg Magnesium Oxide (Mag-Ox -) 400 mg PO DAILY [facility] Last Admin: 08/25/19 11:33 Dose: 400 mg Metformin HCl (Glucophage Xr -) 750 mg PO DAILY@0700 [facility] Last Admin: 08/25/19 06:34 Dose: 750 mg Pantoprazole Sodium (Protonix -) 40 mg PO DAILY [facility] Last Admin: 08/25/19 11:32 Dose: 40 mg Potassium Chloride (K-Dur -) 20 meq PO DAILY [facility] Last Admin: 08/25/19 11:34 Dose: 20 meq - Objective Vital Signs: Vital Signs Temperature 98.9 F 08/25/19 10:00 Pulse Rate 93 H 08/25/19 13:53 Respiratory Rate 18 08/25/19 10:00 Blood Pressure 119/49 L 08/25/19 10:00 O2 Sat by Pulse Oximetry (%) 94 L 08/25/19 13:53 Constitutional: Yes: Well Nourished, No Distress, Calm Cardiovascular: Yes: WNL, Regular Rate and Rhythm Respiratory: Yes: On Nasal O2, Rhonchi (rll, mild). No: Accessory Muscle Use, Cough, SOB, SOB on Exertion Gastrointestinal: Yes: WNL, Normal Bowel Sounds, Soft Extremities: Yes: WNL Edema: No Labs: CBC, BMP 08/25/19 07:00 08/25/19 07:00 INR, PTT INR 1.07 (0.83-1.09) 08/23/19 13:07 Problem List - Problems (1) Diabetes 1.5, managed as type 1 Code(s): E13.9 - OTHER SPECIFIED DIABETES MELLITUS WITHOUT COMPLICATIONS (2) HTN (hypertension) Code(s): I10 - ESSENTIAL (PRIMARY) HYPERTENSION Qualifiers: Hypertension type: essential hypertension Qualified Code(s): I10 - Essential (primary) hypertension (3) Hypoxia Code(s): R09.02 - HYPOXEMIA (4) Pneumonia Code(s): J18.9 - PNEUMONIA, UNSPECIFIED ORGANISM Qualifiers: Pneumonia type: due to unspecified organism Laterality: unspecified laterality Lung location: unspecified part of lung Qualified Code(s): J18.9 - Pneumonia, unspecified organism (5) Sepsis Code(s): A41.9 - SEPSIS, UNSPECIFIED ORGANISM Qualifiers: Sepsis type: sepsis due to unspecified organism Sepsis acute organ dysfunction status: without acute organ dysfunction Qualified Code(s): A41.9 - Sepsis, unspecified organism Assessment/Plan Assessment: Sepsis RLL pnemonia Psoriatic arthritis AAA repair DM HTN Hypokalemia Hypomagnesemia Plan: -continue with current abx, transition to PO in AM -cultures neg -replete lytes and monitor -cw current regimen -ID eval
[2019-08-25] MEDS: AZITHROMYCIN IVPB 500 MG/250 ML BAG IVPB SCH (15:26)
[2019-08-25] MEDS ORDERED: LORATADINE 10 MG TABLET PO ONE (18:44)
[2019-08-25] MEDS: DOCUSATE SODIUM 100 MG CAPSULE (FP) PO SCH ×2 (22:02→22:07)
[2019-08-25] MEDS: ATORVASTATIN CA 20 MG TABLET (FP) PO SCH (22:03)
[2019-08-26] MEDS: LACTATED RINGERS SOLUTION 1,000 ML/1,000 ML INFUS.BAG IV SCH (03:08)
[2019-08-26] MEDS ORDERED: PT OWN MED DRAWER 7, Y5N ONE ×2 (06:40→09:54)
[2019-08-26] MEDS: hydrALAZINE HCL 25 MG TABLET (FP) PO SCH ×3 (06:48→22:39)
[2019-08-26] MEDS: LEVOTHYROXINE NA 25 MCG TABLET (FP) PO SCH (06:48)
[2019-08-26] MEDS: INSULIN SLIDING SCALE (NOVOLOG) 1 VIAL SQ SCH ×4 (06:49→22:40)
[2019-08-26] MEDS: ALBUTEROL SO4 2.5/IPRATROPIUM 0.5 INH SOL 3 ML VIAL.NEB. NEB SCH ×3 (07:25→20:30)
--- NOTE | 2019-08-26 08:13 | PN ---
Progress Note, Physician Chief Complaint: T max 100.5, feels slightly better, K was repleted for 3.0 yesterday History of Present Illness: DM type 2 on Jentadueto HLD Hypothyroidism Iron deficiency Anemia, GI bleed, HTN on Cardizem, Hydralazine, Losartan HCT Ascending AA repair at [facility] Psoriatic arthritis on Methotrexate Pancreatitis Spinal stenosis, s/p ostheoporotic vertebral fracture- on Prolia. Asthma/COPD Ankle surgeries. Umbilical hernia repair. - Current Medication List Current Medications: Active Medications Acetaminophen (Tylenol -) 500 mg PO Q6H PRN PRN Reason: FEVER Albuterol/Ipratropium (Duoneb -) 1 amp NEB RTID [facility] Last Admin: 08/26/19 07:25 Dose: 1 amp Aspirin (Ecotrin -) 81 mg PO DAILY [facility] Last Admin: 08/25/19 11:33 Dose: 81 mg Atorvastatin Calcium (Lipitor -) 20 mg PO HS [facility] Last Admin: 08/25/19 22:03 Dose: 20 mg Diltiazem HCl (Cardizem Cd -) 180 mg PO DAILY [facility] Last Admin: 08/25/19 15:25 Dose: 180 mg Docusate Sodium (Colace -) 300 mg PO HS [facility] Last Admin: 08/25/19 22:07 Dose: Not Given Folic Acid (Folic Acid -) 1 mg PO DAILY [facility] Last Admin: 08/25/19 11:32 Dose: 1 mg Hydralazine HCl (Apresoline -) 25 mg PO TID [facility] Last Admin: 08/26/19 06:48 Dose: 25 mg Ceftriaxone Sodium 1 gm/ (Dextrose) 50 mls @ 200 mls/hr IVPB DAILY [facility]; Protocol Last Admin: 08/25/19 11:34 Dose: 200 mls/hr Azithromycin (Zithromax 500mg Ivpb (Pre-Docked)) 500 mg in 250 mls @ 250 mls/ hr IVPB Q24H [facility] Last Admin: 08/25/19 15:26 Dose: 250 mls/hr Insulin Aspart (Novolog Vial Sliding Scale -) 1 vial SQ ACHS [facility]; Protocol Last Admin: 08/26/19 06:49 Dose: Not Given Levothyroxine Sodium (Synthroid -) 25 mcg PO DAILY@0700 [facility] Last Admin: 08/26/19 06:48 Dose: 25 mcg Losartan Potassium (Cozaar -) 50 mg PO DAILY [facility] Last Admin: 08/25/19 11:33 Dose: 50 mg Magnesium Oxide (Mag-Ox -) 400 mg PO DAILY [facility] Last Admin: 08/25/19 11:33 Dose: 400 mg Metformin HCl (Glucophage Xr -) 750 mg PO DAILY@0700 [facility] Last Admin: 08/26/19 06:49 Dose: 750 mg Pantoprazole Sodium (Protonix -) 40 mg PO DAILY [facility] Last Admin: 08/25/19 11:32 Dose: 40 mg Potassium Chloride (K-Dur -) 20 meq PO DAILY [facility] Last Admin: 08/25/19 11:34 Dose: 20 meq - Objective Vital Signs: Vital Signs Temperature 99.6 F 08/26/19 06:00 Pulse Rate 71 08/26/19 06:00 Respiratory Rate 18 08/26/19 06:00 Blood Pressure 143/76 08/26/19 06:00 O2 Sat by Pulse Oximetry (%) 97 08/25/19 21:00 Constitutional: Yes: Anxious, Mild Distress Eyes: Yes: Conjunctiva Clear, EOM Intact HENT: Yes: Atraumatic, Normocephalic Neck: Yes: Supple, Trachea Midline. No: Decreased ROM, Lymphadenopathy Cardiovascular: Yes: Regular Rate and Rhythm, S1, S2. No: JVD Respiratory: Yes: Cough, Rhonchi, SOB Gastrointestinal: Yes: Normal Bowel Sounds, Soft ...Rectal Exam: Yes: Deferred Genitourinary: No: Anuria, Bladder Distention, CVA Tenderness - Right Musculoskeletal: Yes: WNL Extremities: No: Amputation, Calf Tenderness, Cyanosis Edema: No Peripheral Pulses WNL: Yes Integumentary: No: Bruising, Erythema Neurological: Yes: WNL ...Motor Strength: WNL Psychiatric: Yes: WNL Labs: CBC, BMP 08/25/19 07:00 08/25/19 07:00 INR, PTT INR 1.07 (0.83-1.09) 08/23/19 13:07 Problem List - Problems (1) Hypoxia Assessment/Plan: O2 nc PRN Code(s): R09.02 - HYPOXEMIA (2) Pneumonia Assessment/Plan: CT chest RLL possibly APSTOR ID consult f/u appreciated Iv ceftriaxone to bew converted to PO Bld cx-negative D/C IVF Code(s): J18.9 - PNEUMONIA, UNSPECIFIED ORGANISM Qualifiers: Pneumonia type: due to unspecified organism Laterality: unspecified laterality Lung location: unspecified part of lung Qualified Code(s): J18.9 - Pneumonia, unspecified organism (3) Sepsis Assessment/Plan: Resolved Code(s): A41.9 - SEPSIS, UNSPECIFIED ORGANISM Qualifiers: Sepsis type: sepsis due to unspecified organism Sepsis acute organ dysfunction status: without acute organ dysfunction Qualified Code(s): A41.9 - Sepsis, unspecified organism (4) Arthritis Assessment/Plan: Hold Metotrexate for now. Code(s): M19.90 - UNSPECIFIED OSTEOARTHRITIS, UNSPECIFIED SITE (5) Diabetes 1.5, managed as type 1 Assessment/Plan: BGM Sliding scale Levemir 10 units Qd Code(s): E13.9 - OTHER SPECIFIED DIABETES MELLITUS WITHOUT COMPLICATIONS (6) HTN (hypertension) Assessment/Plan: Cardizem, hydralazine, ARB PO. Code(s): I10 - ESSENTIAL (PRIMARY) HYPERTENSION Qualifiers: Hypertension type: essential hypertension Qualified Code(s): I10 - Essential (primary) hypertension (7) Hypokalemia Assessment/Plan: Replete K PRN follow K Problems reviewed: Yes Code(s): E87.6 - HYPOKALEMIA
[2019-08-26 08:44] LABS: BASO % 0.5 % (0-2.0); EOS % 1.4 % (0-4.5); HEMATOCRIT 35.4 % (32.4-45.2); HEMOGLOBIN 11.7 GM/dL (10.7-15.3); LYMPH % 31.6 % (8-40); MCH 27.9 pg (25.7-33.7); MCHC 33.1 g/dl (32.0-36.0); MEAN CELL VOLUME 84.4 fl (80-96); MEAN PLT VOLUME 8.6 fl (7.5-11.1); MONO % 16.1 % (3.8-10.2); NEUT % 50.4 % (42.8-82.8); PLATELET COUNT 208 K/MM3 (134-434); RBC 4.19 M/mm3 (3.60-5.2); RDW 20.1 % (11.6-15.6); WHITE BLOOD COUNT 4.6 K/mm3 (4.0-10.0)
[2019-08-26 09:19] LABS: CALCIUM 8.8 mg/dL (8.5-10.1); CREATININE 0.8 mg/dL (0.55-1.3); MAGNESIUM 1.6 mg/dL (1.8-2.4)
[2019-08-26] MEDS ORDERED: DEXTROSE 5%-WATER - 50 ML IVPB ONE (09:54)
[2019-08-26] MEDS ORDERED: cefTRIAXone SODIUM 1 GM VIAL ONE (09:54)
[2019-08-26] MEDS: MAGNESIUM OXIDE 400 MG TABLET (FP) PO SCH (10:01)
[2019-08-26] MEDS: POTASSIUM CHLORIDE TABS 20 MEQ TABLET.ER (FP) PO SCH (10:02)
[2019-08-26] MEDS: FOLIC ACID 1 MG TABLET (FP) PO SCH (10:02)
[2019-08-26] MEDS: PANTOPRAZOLE 40 MG TABLET PO SCH (10:02)
[2019-08-26] MEDS: ASPIRIN COATED 81 MG TABLET.EC PO SCH (10:03)
[2019-08-26] MEDS: LOSARTAN POTASSIUM 50 MG TABLET (FP) PO SCH (10:03)
[2019-08-26 11:30] LABS: ANISOCYTOSIS 1+; MACROCYTOSIS 0; OVALOCYTE 1+; PLATELET ESTIMATE NORMAL
[2019-08-26] MEDS: CEFTRIAXONE 1 GM in DEXTROSE 5%-WATER - 50 ML IVPB SCH (11:39)
[2019-08-26] MEDS ORDERED: POTASSIUM CHLORIDE TABS 20 MEQ TABLET.ER (FP) PO ONE ×2 (12:00→22:00)
--- NOTE | 2019-08-26 12:44 | PN ---
Progress Note (short form) - Note Progress Note: PULMONARY Feels better. Wants to go home. No fevers. +nonproductive cough. Vital Signs Period Temp Pulse Resp BP Sys/Grover Pulse Ox Last 24 Hr 97.9 F-100.5 F 71-98 18-20 141-157/74-93 94-97 Gen: NAD at rest Heart: RRR Lung: decreased breath sounds at the bases Abd: soft, nontender Ext: no edema CBC, BMP 08/26/19 08:05 08/26/19 08:05 Active Medications Acetaminophen (Tylenol -) 500 mg PO Q6H PRN PRN Reason: FEVER Albuterol/Ipratropium (Duoneb -) 1 amp NEB RTID [facility] Last Admin: 08/26/19 07:25 Dose: 1 amp Aspirin (Ecotrin -) 81 mg PO DAILY [facility] Last Admin: 08/26/19 10:03 Dose: 81 mg Atorvastatin Calcium (Lipitor -) 20 mg PO HS [facility] Last Admin: 08/25/19 22:03 Dose: 20 mg Diltiazem HCl (Cardizem Cd -) 180 mg PO DAILY [facility] Last Admin: 08/26/19 10:03 Dose: 180 mg Docusate Sodium (Colace -) 300 mg PO [facility] Last Admin: 08/25/19 22:07 Dose: Not Given Folic Acid (Folic Acid -) 1 mg PO DAILY [facility] Last Admin: 08/26/19 10:02 Dose: 1 mg Hydralazine HCl (Apresoline -) 25 mg PO TID [facility] Last Admin: 08/26/19 06:48 Dose: 25 mg Ceftriaxone Sodium 1 gm/ (Dextrose) 50 mls @ 200 mls/hr IVPB DAILY [facility]; Protocol Last Admin: 08/26/19 11:39 Dose: 200 mls/hr Azithromycin (Zithromax 500mg Ivpb (Pre-Docked)) 500 mg in 250 mls @ 250 mls/ hr IVPB Q24H [facility] Last Admin: 08/25/19 15:26 Dose: 250 mls/hr Insulin Aspart (Novolog Vial Sliding Scale -) 1 vial SQ ACHS [facility]; Protocol Last Admin: 08/26/19 11:55 Dose: Not Given Levothyroxine Sodium (Synthroid -) 25 mcg PO DAILY@0700 [facility] Last Admin: 08/26/19 06:48 Dose: 25 mcg Losartan Potassium (Cozaar -) 50 mg PO DAILY [facility] Last Admin: 08/26/19 10:03 Dose: 50 mg Magnesium Oxide (Mag-Ox -) 400 mg PO DAILY [facility] Last Admin: 08/26/19 10:01 Dose: 400 mg Metformin HCl (Glucophage Xr -) 750 mg PO DAILY@0700 [facility] Last Admin: 08/26/19 06:49 Dose: 750 mg Pantoprazole Sodium (Protonix -) 40 mg PO DAILY [facility] Last Admin: 08/26/19 10:02 Dose: 40 mg Potassium Chloride (K-Dur -) 20 meq PO DAILY [facility] Last Admin: 08/26/19 10:02 Dose: 20 meq Potassium Chloride (K-Dur -) 40 meq PO ONCE ONE Stop: 08/26/19 22:01 A/P Pneumonia Sepsis Lactic Acidosis Acute Kidney Injury Psoriatic Arthritis HTN DM h/o AAA repair Hypothyroidism - antibiotics per ID - inhaled bronchodilators as needed - O2 to keep SpO2 >90% - replete lytes - DVT prophylaxis
--- NOTE | 2019-08-26 13:38 | ECHO ---
Name: OSCAR ROJAS Exam:Adult Echocardiogram Study Date: 08/26/2019 10:40 AM Age: 73 yrs Reason For Study: CHF Height: 58 in Weight: 126 lb BSA: 1.5 m2 MMode/2D Measurements & Calculations IVSd: 1.4 cm Ao root diam: 3.3 cm LVIDd: 3.7 cm LA dimension: 4.4 cm LVIDs: 2.5 cm ACS: 1.8 cm LVPWd: 1.0 cm EDV(Teich): 60.0 ml LVOT diam: 2.0 cm ESV(Teich): 21.7 ml LAV (MOD-bp): 87.9 ml TAPSE: 1.8 cm RV S Qamar: 9.7 cm/sec Doppler Measurements & Calculations MV E max qamar: 58.8 cm/sec Ao V2 max: 150.7 cm/sec MV A max qamar: 113.2 cm/sec Ao max P.1 mmHg MV E/A: 0.52 Ao V2 mean: 99.4 cm/sec MV dec time: 0.31 sec Ao mean P.6 mmHg Ao V2 VTI: 28.3 cm ZOEY(I,D): 2.6 cm2 ZOEY(V,D): 2.2 cm2 LV V1 max P.0 mmHg SV(LVOT): 73.1 ml LV V1 mean P.3 mmHg LV V1 max: 111.4 cm/sec LV V1 mean: 67.8 cm/sec LV V1 VTI: 24.3 cm TR max qamar: 230.1 cm/sec PA V2 max: 119.4 cm/sec TR max P.1 mmHg PA max P.7 mmHg PA acc time: 0.09 sec Med Peak E' Qamar: 5.3 cm/sec PA pr(Accel): 37.8 mmHg Med E/e': 11.0 Lat Peak E' Qamar: 7.2 cm/sec Lat E/e': 8.2 Pulm Sys Qamar: 92.5 cm/sec Pulm Grover Qamar: 44.0 cm/sec Pulm S/D: 2.1 Left Ventricle Normal size, mild basal septal hypertrophy. Normal systolic function. Grade I diastolic dysfunction, (abnormal relaxation pattern). Right Ventricle The right ventricle is grossly normal size. The right ventricular systolic function is normal. Atria The left atrium is severely dilated. Right atrial size is normal. Mitral Valve The mitral valve is grossly normal. There is mild mitral annular calcification. Tricuspid Valve The tricuspid valve is not well visualized, but is grossly normal. There is mild tricuspid regurgitat ion. Right ventricular systolic pressure is elevated at 30-40mmHg. Aortic Valve There is mild aortic sclerosis.;. Trace aortic regurgitation. Pulmonic Valve The pulmonic valve is not well seen, but is grossly normal. Great Vessels The aortic root is normal size. Pericardium/Pleura Trivial pericardial effusion not hemodynamically significant. Interpretation Summary Normal LV, RV systolic function. Mild basal septal Hypertrophy..Relaxation abnormality Severely dilated left atrium Mild tricuspid regurgitation with borderline pulmonary hypertension Sclerotic aortic valve with trace regurgitation Nildly calcified mitral valve annulus. EDDI\dsedab 08/26/2019 11:44 AM
[2019-08-26] MEDS: AZITHROMYCIN IVPB 500 MG/250 ML BAG IVPB SCH (15:06)
--- NOTE | 2019-08-26 16:41 | PN ---
Progress Note (short form) - Note Progress Note: low grade temperature overnight cough resolved, now eating Vital Signs Period Temp Pulse Resp BP Sys/Grover Pulse Ox Last 24 Hr 97.9 F-100.5 F 71-98 18-20 140-174/70-93 97 cor-rrr lungs crackles right base abd soft,nt ext no edema CBC, BMP 08/26/19 08:05 08/26/19 08:05 Microbiology 08/23/19 13:07 Blood - Peripheral Venous Blood Culture - Preliminary NO GROWTH OBTAINED AFTER 72 HOURS, INCUBATION TO CONTINUE FOR 2 DAYS. 08/23/19 13:07 Blood - Peripheral Venous Blood Culture - Preliminary NO GROWTH OBTAINED AFTER 72 HOURS, INCUBATION TO CONTINUE FOR 2 DAYS. 08/24/19 06:22 Urine For Antigen Detection Legionella Antigen - Final 08/24/19 06:22 Urine For Antigen Detection Streptococcus pneumoniae Antigen (M - Final a/p sepsis pneumonia RLL immunocompromised host by meds for psoriatic arthritis history of aneurysm repair doing well would continue rocephin/zithromax day #4 still requiring oxygen consider d/c home tomorrow if she continues to improve on po ceftin
[2019-08-26] MEDS: ATORVASTATIN CA 20 MG TABLET (FP) PO SCH (22:40)
[2019-08-26] MEDS: DOCUSATE SODIUM 100 MG CAPSULE (FP) PO SCH (22:40)
[2019-08-27] MEDS ORDERED: PT OWN MED DRAWER 7, Y5N ONE ×2 (06:27→10:18)
[2019-08-27] MEDS: INSULIN SLIDING SCALE (NOVOLOG) 1 VIAL SQ SCH ×2 (06:29→11:49)
[2019-08-27] MEDS: hydrALAZINE HCL 25 MG TABLET (FP) PO SCH ×2 (06:29→14:12)
[2019-08-27] MEDS: LEVOTHYROXINE NA 25 MCG TABLET (FP) PO SCH (06:29)
[2019-08-27] MEDS: ALBUTEROL SO4 2.5/IPRATROPIUM 0.5 INH SOL 3 ML VIAL.NEB. NEB SCH ×2 (08:30→11:52)
[2019-08-27 09:28] LABS: BLOOD UREA NITROGEN 8.3 mg/dL (7-18); CREATININE 0.8 mg/dL (0.55-1.3); POTASSIUM 4.1 mmol/L (3.5-5.1)
[2019-08-27] MEDS ORDERED: DEXTROSE 5%-WATER - 50 ML IVPB ONE (10:08)
[2019-08-27] MEDS ORDERED: cefTRIAXone SODIUM 1 GM VIAL ONE (10:08)
[2019-08-27] MEDS: FOLIC ACID 1 MG TABLET (FP) PO SCH (10:11)
[2019-08-27] MEDS: CEFTRIAXONE 1 GM in DEXTROSE 5%-WATER - 50 ML IVPB SCH (10:11)
[2019-08-27] MEDS: MAGNESIUM OXIDE 400 MG TABLET (FP) PO SCH (10:11)
[2019-08-27] MEDS: PANTOPRAZOLE 40 MG TABLET PO SCH (10:11)
[2019-08-27] MEDS: POTASSIUM CHLORIDE TABS 20 MEQ TABLET.ER (FP) PO SCH (10:11)
[2019-08-27] MEDS: LOSARTAN POTASSIUM 50 MG TABLET (FP) PO SCH (10:12)
[2019-08-27] MEDS: ASPIRIN COATED 81 MG TABLET.EC PO SCH (10:12)
--- NOTE | 2019-08-27 12:53 | PN ---
Progress Note (short form) - Note Progress Note: Feels well, no fever. Mild cough. K 4.1 Dr Bergeron consult appreciated. Vital Signs (72 hours) 08/24/19 08/24/19 08/24/19 16:04 18:00 21:00 Temperature 99.6 F 99.7 F H Pulse Rate 77 82 Respiratory 18 18 Rate Blood Pressure 150/71 145/88 O2 Sat by Pulse 95 Oximetry (%) 08/24/19 08/25/19 08/25/19 22:00 06:00 09:00 Temperature 99.0 F 98.8 F Pulse Rate 75 73 Respiratory 18 18 18 Rate Blood Pressure 138/64 156/76 O2 Sat by Pulse 94 L Oximetry (%) 08/25/19 08/25/19 08/25/19 10:00 13:53 15:00 Temperature 98.9 F 99.9 F H Pulse Rate 81 93 H 86 Respiratory 18 18 Rate Blood Pressure 119/49 L 151/74 O2 Sat by Pulse 94 L Oximetry (%) 08/25/19 08/25/19 08/25/19 18:20 21:00 22:00 Temperature 100 F H 97.9 F Pulse Rate 87 98 H Respiratory 18 18 Rate Blood Pressure 157/84 151/93 O2 Sat by Pulse 97 Oximetry (%) 08/26/19 08/26/19 08/26/19 02:00 06:00 09:49 Temperature 100.5 F H 99.6 F 98.7 F Pulse Rate 76 71 76 Respiratory 18 18 20 Rate Blood Pressure 141/75 143/76 149/81 O2 Sat by Pulse Oximetry (%) 08/26/19 08/26/19 08/26/19 10:00 14:00 14:31 Temperature 99.0 F Pulse Rate 81 79 Respiratory 20 20 Rate Blood Pressure 140/70 174/75 H O2 Sat by Pulse 96 Oximetry (%) 08/26/19 08/26/19 08/26/19 18:00 21:00 22:00 Temperature 99.4 F 98.5 F Pulse Rate 78 79 Respiratory 20 20 Rate Blood Pressure 153/76 144/75 O2 Sat by Pulse 95 Oximetry (%) 08/27/19 08/27/19 06:00 09:40 Temperature 98.9 F 99.3 F Pulse Rate 77 77 Respiratory 20 20 Rate Blood Pressure 141/83 140/66 O2 Sat by Pulse Oximetry (%) Awake, alert, NAD Lungs philippe RLL crackles. CXR-no change. Abdomen soft, NT Ext-no CCE Abnormal Lab Results 08/26/19 08/27/19 08:05 07:45 Neutrophils % (Manual) 39.6 L Monocytes % (Manual) 13 H Blast Cells % (Manual) 1 H D Metamyelocytes 5 H D Anion Gap 5 L Random Glucose 139 H Laboratory Results - last 24 hr 08/26/19 08/26/19 08/26/19 08:05 17:25 22:32 Neutrophils % (Manual) 39.6 L Band Neutrophils % 4.9 Lymphocytes % (Manual) 13.9 Monocytes % (Manual) 13 H Eosinophils % (Manual) 3.0 D Basophils % (Manual) 0.0 Myelocytes % (Man) 2 D Promyelocytes % (Man) 0 Blast Cells % (Manual) 1 H D Nucleated RBC % 0 Metamyelocytes 5 H D Hypochromia 0 Platelet Estimate Normal Platelet Comment Present Polychromasia 1+ Poikilocytosis 1+ Anisocytosis 1+ Microcytosis 1+ Macrocytosis 0 Spherocytes 1+ Ovalocytes 1+ Sodium Potassium Chloride Carbon Dioxide Anion Gap BUN Creatinine Est GFR (CKD-EPI)AfAm Est GFR (CKD-EPI)NonAf POC Glucometer 126 116 Random Glucose Calcium 08/27/19 08/27/19 08/27/19 06:22 07:45 11:45 Neutrophils % (Manual) Band Neutrophils % Lymphocytes % (Manual) Monocytes % (Manual) Eosinophils % (Manual) Basophils % (Manual) Myelocytes % (Man) Promyelocytes % (Man) Blast Cells % (Manual) Nucleated RBC % Metamyelocytes Hypochromia Platelet Estimate Platelet Comment Polychromasia Poikilocytosis Anisocytosis Microcytosis Macrocytosis Spherocytes Ovalocytes Sodium 141 Potassium 4.1 Chloride 106 Carbon Dioxide 30 Anion Gap 5 L BUN 8.3 Creatinine 0.8 Est GFR (CKD-EPI)AfAm 84.18 Est GFR (CKD-EPI)NonAf 72.63 POC Glucometer 88 98 Random Glucose 139 H Calcium 9.0 Current Active Problems Problem Status Onset COPD (chronic obstructive pulmonary disease) Acute Diabetes 1.5, managed as type 1 Acute HTN (hypertension) Acute Hypokalemia Acute Hypoxia Acute Pneumonia Acute Sepsis Acute Plan d/c home on PO Ceftin F/u at the office in 2-3 days. F/u Dr Vanessa re aneurysm from 3.7 to [address] copy to pt. Problem List - Problems (1) Hypoxia Code(s): R09.02 - HYPOXEMIA (2) Pneumonia Code(s): J18.9 - PNEUMONIA, UNSPECIFIED ORGANISM Qualifiers: Pneumonia type: due to unspecified organism Laterality: unspecified laterality Lung location: unspecified part of lung Qualified Code(s): J18.9 - Pneumonia, unspecified organism (3) Sepsis Code(s): A41.9 - SEPSIS, UNSPECIFIED ORGANISM Qualifiers: Sepsis type: sepsis due to unspecified organism Sepsis acute organ dysfunction status: without acute organ dysfunction Qualified Code(s): A41.9 - Sepsis, unspecified organism (4) Arthritis Code(s): M19.90 - UNSPECIFIED OSTEOARTHRITIS, UNSPECIFIED SITE (5) Diabetes 1.5, managed as type 1 Code(s): E13.9 - OTHER SPECIFIED DIABETES MELLITUS WITHOUT COMPLICATIONS (6) HTN (hypertension) Code(s): I10 - ESSENTIAL (PRIMARY) HYPERTENSION Qualifiers: Hypertension type: essential hypertension Qualified Code(s): I10 - Essential (primary) hypertension (7) Hypokalemia Code(s): E87.6 - HYPOKALEMIA
--- NOTE | 2019-08-27 12:57 | DS ---
Physical Examination Vital Signs: Vital Signs Temperature 99.3 F 08/27/19 09:40 Pulse Rate 77 08/27/19 09:40 Respiratory Rate 20 08/27/19 09:40 Blood Pressure 140/66 08/27/19 09:40 O2 Sat by Pulse Oximetry (%) 95 08/26/19 21:00 Constitutional: Yes: No Distress Eyes: Yes: Conjunctiva Clear, EOM Intact HENT: Yes: Atraumatic, Normocephalic Neck: Yes: Supple, Trachea Midline Cardiovascular: Yes: Regular Rate and Rhythm, S1, S2. No: Bradycardia, Tachycardia Respiratory: Yes: Regular, CTA Bilaterally, Rales (RLL) Gastrointestinal: Yes: Normal Bowel Sounds, Soft. No: Abdomen, Obese ...Rectal Exam: Yes: Deferred Renal/: No: Anuria, Bladder Distention, CVA Tenderness - Left, CVA Tenderness - Right Breast(s): Yes: WNL Extremities: No: Calf Tenderness, Cold, Cyanosis Edema: No Peripheral Pulses WNL: Yes Integumentary: Yes: WNL Neurological: Yes: WNL ...Motor Strength: WNL Psychiatric: Yes: WNL Labs: CBC, BMP 08/26/19 08:05 08/27/19 07:45 Discharge Summary Problems reviewed: Yes Reason For Visit: HYPOXIA, PNA Current Active Problems COPD (chronic obstructive pulmonary disease) (Acute) Diabetes 1.5, managed as type 1 (Acute) HTN (hypertension) (Acute) Hypokalemia (Acute) Hypoxia (Acute) Pneumonia (Acute) Sepsis (Acute) Condition: Improved - Instructions Referrals: Mono Thomas MD [Primary Care Provider] - Disposition: HOME - Home Medications Comprehensive Discharge Medication List: Ambulatory Orders Aspirin Coated [Ecotrin -] 81 mg PO DAILY 12/27/11 Atorvastatin Ca [Lipitor] 20 mg PO DAILY 12/27/11 Diltiazem [Cardizem -] 420 mg PO DAILY 12/27/11 Glipizide/Metformin HCl [Metaglip 2.5-250 mg Tablet] 2 tab PO DAILY 12/27/11 Levothyroxine Sodium [Synthroid] 25 mcg PO DAILY 12/27/11 Losartan 50Mg/Hctz 12.5MG [Hyzaar -] 50 mg PO DAILY 12/27/11 Esomeprazole Mag Trihydrate [Nexium] 40 mg PO DAILY 09/09/13 Folic Acid 1 mg PO DAILY 02/14/19 Hydralazine HCl 25 mg PO DAILY 02/14/19
--- NOTE | 2019-08-27 13:02 | PN ---
Progress Note (short form) - Note Progress Note: PULMONARY Feels better. Wants to go home. No fevers. Cough improving. Vital Signs Period Temp Pulse Resp BP Sys/Grover Pulse Ox Last 24 Hr 98.5 F-99.4 F 77-81 20-20 140-174/66-83 95 Gen: NAD at rest Heart: RRR Lung: decreased breath sounds at the bases Abd: soft, nontender Ext: no edema CBC, BMP 08/26/19 08:05 08/27/19 07:45 Active Medications Acetaminophen (Tylenol -) 500 mg PO Q6H PRN PRN Reason: FEVER Albuterol/Ipratropium (Duoneb -) 1 amp NEB RTID [facility] Last Admin: 08/27/19 08:30 Dose: 1 amp Aspirin (Ecotrin -) 81 mg PO DAILY [facility] Last Admin: 08/27/19 10:12 Dose: 81 mg Atorvastatin Calcium (Lipitor -) 20 mg PO HS [facility] Last Admin: 08/26/19 22:40 Dose: 20 mg Diltiazem HCl (Cardizem Cd -) 180 mg PO DAILY [facility] Last Admin: 08/27/19 10:18 Dose: 180 mg Docusate Sodium (Colace -) 300 mg PO [facility] Last Admin: 08/26/19 22:40 Dose: Not Given Folic Acid (Folic Acid -) 1 mg PO DAILY [facility] Last Admin: 08/27/19 10:11 Dose: 1 mg Hydralazine HCl (Apresoline -) 25 mg PO TID [facility] Last Admin: 08/27/19 06:29 Dose: 25 mg Ceftriaxone Sodium 1 gm/ (Dextrose) 50 mls @ 200 mls/hr IVPB DAILY [facility]; Protocol Last Admin: 08/27/19 10:11 Dose: 200 mls/hr Azithromycin (Zithromax 500mg Ivpb (Pre-Docked)) 500 mg in 250 mls @ 250 mls/ hr IVPB Q24H [facility] Last Admin: 08/26/19 15:06 Dose: 250 mls/hr Insulin Aspart (Novolog Vial Sliding Scale -) 1 vial SQ ACHS [facility]; Protocol Last Admin: 08/27/19 11:49 Dose: Not Given Levothyroxine Sodium (Synthroid -) 25 mcg PO DAILY@0700 [facility] Last Admin: 08/27/19 06:29 Dose: 25 mcg Losartan Potassium (Cozaar -) 50 mg PO DAILY [facility] Last Admin: 08/27/19 10:12 Dose: 50 mg Magnesium Oxide (Mag-Ox -) 400 mg PO DAILY [facility] Last Admin: 08/27/19 10:11 Dose: 400 mg Metformin HCl (Glucophage Xr -) 750 mg PO DAILY@0700 [facility] Last Admin: 08/27/19 06:30 Dose: 750 mg Pantoprazole Sodium (Protonix -) 40 mg PO DAILY [facility] Last Admin: 08/27/19 10:11 Dose: 40 mg Potassium Chloride (K-Dur -) 20 meq PO DAILY [facility] Last Admin: 08/27/19 10:11 Dose: 20 meq A/P Pneumonia Sepsis Lactic Acidosis Acute Kidney Injury Psoriatic Arthritis HTN DM h/o AAA repair Hypothyroidism - antibiotics per ID - inhaled bronchodilators as needed - O2 to keep SpO2 >90% - replete lytes - DVT prophylaxis - can d/c home from pulmonary standpoint
[2019-08-27 14:12] VITALS: BP 132/72; PULSE 85
[2019-08-27 14:14] VITALS: TEMP 98.9
== END 2019-08-27 14:59 | disposition home or self-care (01) | DRG 871 ==
LOC: JER 11:45 → JERBED 16:49 → J5S 20:29
PROVIDERS: ADMIT Internal Medicine; ATTEND Internal Medicine
DX: A41.89 Other specified sepsis (principal); J18.9 Pneumonia, unspecified organism; E87.2 Acidosis; N17.9 Acute kidney failure, unspecified; E03.9 Hypothyroidism, unspecified; K21.9 Gastro-esophageal reflux disease without esophagitis; I10 Essential (primary) hypertension; E78.5 Hyperlipidemia, unspecified; M21.962 Unspecified acquired deformity of left lower leg; R26.81 Unsteadiness on feet; R09.02 Hypoxemia; D50.9 Iron deficiency anemia, unspecified; J44.9 Chronic obstructive pulmonary disease, unspecified; E87.6 Hypokalemia; E83.42 Hypomagnesemia; M48.00 Spinal stenosis, site unspecified; E11.42 Type 2 diabetes mellitus with diabetic polyneuropathy; L40.50 Arthropathic psoriasis, unspecified; I71.4 Abdominal aortic aneurysm, without rupture; Z87.11 Personal history of peptic ulcer disease; Z79.899 Other long term (current) drug therapy
CPT/HCPCS: 36415; 71045-TC-FY; 71250-TC; 80048; 80053; 82962; 83036; 83605; 83735; 84100; 84439; 84443; 84484; 85025; 85610; 85730; 87040; 87804; 87899; 93005; 93010; 93306-TC; 94640; 94761; 99284-25; J0131

== ENCOUNTER 2021-10-12 09:15 | Day surgery (SDC) | payer OTHER ==
[2021-10-12] MEDS ORDERED: FERRIC CARBOXYMALTOSE 750 MG in SODIUM CHLORIDE 250 ML IVPB ONE (10:15)
[2021-10-12 12:30] VITALS: BP 133/65; PULSE 76; TEMP 98
== END 2021-10-12 12:30 | disposition home or self-care (01) ==
LOC: FINFUSION 09:15 → FM/S 09:17 → FINFUSION 12:30
PROVIDERS: ATTEND Internal Medicine
PROC: 3E033GC Introduction of Other Therapeutic Substance into Peripheral Vein, Percutaneous Approach (ICD-10-PCS; principal; 2021-10-12)
DX: D50.9 Iron deficiency anemia, unspecified (principal)
CPT/HCPCS: 96365; J1439

== ENCOUNTER 2021-10-19 09:08 | Day surgery (SDC) | payer OTHER ==
[2021-10-19 09:45] VITALS: TEMP 98.5
[2021-10-19] MEDS ORDERED: FERRIC CARBOXYMALTOSE 750 MG in SODIUM CHLORIDE 250 ML IVPB ONE (10:00)
[2021-10-19 11:16] VITALS: BP 125/48; PULSE 58
== END 2021-10-19 11:02 | disposition home or self-care (01) ==
LOC: FINFUSION 09:08 → FM/S 09:42 → FINFUSION 11:02
PROVIDERS: ATTEND Internal Medicine
PROC: 3E033GC Introduction of Other Therapeutic Substance into Peripheral Vein, Percutaneous Approach (ICD-10-PCS; principal; 2021-10-19)
DX: D50.9 Iron deficiency anemia, unspecified (principal)
CPT/HCPCS: 96365; J1439

== ENCOUNTER 2022-09-05 17:46 | Inpatient (IN) | payer OTHER ==
[2022-09-05] MEDS ORDERED: ACETAMINOPHEN 500 MG TABLET (FP) PO ONE (18:57)
[2022-09-05] MEDS ORDERED: ACETAMINOPHEN 500 MG TABLET (FP) ONE (19:05)
[2022-09-05 20:48] LABS: HEMATOCRIT 41.2 % (32.4-45.2); HEMOGLOBIN 13.3 GM/dL (10.7-15.3); MCH 29.4 pg (25.7-33.7); MCHC 32.4 g/dl (32.0-36.0); MEAN CELL VOLUME 90.7 fl (80-96); MEAN PLT VOLUME 9.4 fl (7.5-11.1); PLATELET COUNT 305 10^3/uL (134-434); RBC 4.54 M/mm3 (3.60-5.2); RDW 14.8 % (11.6-15.6); WHITE BLOOD COUNT 23.7 K/mm3 (4.0-10.0)
[2022-09-05 21:04] LABS: ALBUMIN 4.3 g/dl (3.4-5.0); BLOOD UREA NITROGEN 19.5 mg/dL (7-18); CALCIUM 9.8 mg/dL (8.5-10.1)
[2022-09-05 21:07] LABS: CREATININE 1.4 mg/dL (0.55-1.3)
[2022-09-05 21:09] LABS: BILIRUBIN,TOTAL 0.5 mg/dL (0.2-1); TOT PROT 8.2 g/dl (6.4-8.2)
[2022-09-05] MEDS ORDERED: morphine CARPU-JECT 2 MG/1 ML DISP.SYRIN IVPUSH ONE (22:11)
[2022-09-05] MEDS ORDERED: POTASSIUM CHLORIDE ORAL LIQUID 20 MEQ/15 ML PO ONE (22:13)
[2022-09-05] MEDS ORDERED: SODIUM CHLORIDE 0.9% 500 ML INFUS.BAG IV ONE (22:14)
[2022-09-05 22:36] LABS: ANISOCYTOSIS 0; MACROCYTOSIS 0; PLATELET ESTIMATE NORMAL
[2022-09-05] MEDS ORDERED: DOCUSATE SODIUM 100 MG CAPSULE (FP) PO PRN (22:41)
[2022-09-05] MEDS ORDERED: POTASSIUM CHLORIDE TABS 20 MEQ TABLET.ER (FP) PO ONE (23:01)
[2022-09-05 23:26] LABS: MAGNESIUM 1.3 mg/dL (1.8-2.4)
[2022-09-05 23:29] LABS: PHOSPHOROUS 3.8 mg/dL (2.5-4.9)
[2022-09-06 02:30] LABS: URINE APPEARANCE CLEAR; URINE BILIRUBIN NEGATIVE (NEGATIVE); URINE COLOR YELLOW; URINE GLUCOSE (UA) NEGATIVE (NEGATIVE); URINE KETONE NEGATIVE (NEGATIVE); URINE LEUK ESTERASE NEGATIVE (NEGATIVE); URINE NITRITE NEGATIVE (NEGATIVE); URINE PROTEIN TRACE (NEGATIVE); URINE UROBILINOGEN 0.2 mg/dL (0.2-1.0)
[2022-09-06] MEDS ORDERED: MAGNESIUM SULFATE IN WATER 2 GM/50 ML IVPB IVPB ONE ×2 (03:23→03:50)
[2022-09-06] MEDS ORDERED: MAGNESIUM OXIDE 400 MG TABLET (FP) PO ONE (03:45)
[2022-09-06] MEDS ORDERED: KCL 10 MEQ IVPB 10 MEQ/100 ML INFUS.BAG IVPB ONE (03:50)
[2022-09-06] MEDS ORDERED: MAGNESIUM OXIDE 400 MG TABLET (FP) ONE (03:50)
[2022-09-06] MEDS: KCL 10 MEQ IVPB 10 MEQ/100 ML INFUS.BAG IVPB SCH ×2 (04:31→05:55)
[2022-09-06 05:35] VITALS: BMI 22.4
[2022-09-06] MEDS: INSULIN SLIDING SCALE (NOVOLOG) 1 VIAL SQ SCH ×4 (06:25→22:22)
[2022-09-06 10:03] LABS: BASO % 0.5 % (0-2.0); EOS % 0.4 % (0-4.5); HEMATOCRIT 35.9 % (32.4-45.2); HEMOGLOBIN 12.4 GM/dL (10.7-15.3); LYMPH % 13.5 % (8-40); MCH 30.7 pg (25.7-33.7); MCHC 34.5 g/dl (32.0-36.0); MEAN CELL VOLUME 89.1 fl (80-96); MEAN PLT VOLUME 8.5 fl (7.5-11.1); MONO % 8.7 % (3.8-10.2); NEUT % 76.9 % (42.8-82.8); PLATELET COUNT 263 10^3/uL (134-434); RBC 4.03 M/mm3 (3.60-5.2); RDW 14.9 % (11.6-15.6); WHITE BLOOD COUNT 15.1 K/mm3 (4.0-10.0)
[2022-09-06 10:06] LABS: ACTIVATED PTT 28.4 SECONDS (25.2-36.5); INR 1.05 (0.83-1.09); PROTHROMBIN TIME (PATIENT) 12.2 SEC (9.7-13.0)
[2022-09-06 10:45] LABS: CALCIUM 9.4 mg/dL (8.5-10.1)
[2022-09-06 10:46] LABS: BLOOD UREA NITROGEN 14.8 mg/dL (7-18)
[2022-09-06] MEDS: POTASSIUM CHLORIDE TABS 20 MEQ TABLET.ER (FP) PO SCH (16:52)
[2022-09-06] MEDS: HEPARIN NA (PORCINE) 5,000 UNITS/ML 1ML VIAL SQ SCH (22:22)
[2022-09-07] MEDS: INSULIN SLIDING SCALE (NOVOLOG) 1 VIAL SQ SCH ×4 (06:32→21:52)
[2022-09-07] MEDS: HEPARIN NA (PORCINE) 5,000 UNITS/ML 1ML VIAL SQ SCH ×3 (06:32→21:53)
[2022-09-07] MEDS ORDERED: hydrALAZINE HCL 25 MG TABLET (FP) PO SCH (10:00)
[2022-09-07] MEDS ORDERED: LOSARTAN POTASSIUM 50 MG TABLET PO SCH (10:00)
[2022-09-07] MEDS: POTASSIUM CHLORIDE TABS 20 MEQ TABLET.ER (FP) PO SCH (10:58)
[2022-09-07] MEDS: NEBIVOLOL 10 MG TABLET (FP) PO SCH (10:58)
[2022-09-07] MEDS ORDERED: INSULIN (NOVOLOG) ASPART 100 UNITS/ML 10ML VIAL ONE (11:40)
[2022-09-07 13:05] LABS: HEMATOCRIT 38.2 % (32.4-45.2); HEMOGLOBIN 12.7 GM/dL (10.7-15.3); MCH 29.8 pg (25.7-33.7); MCHC 33.1 g/dl (32.0-36.0); MEAN PLT VOLUME 9.1 fl (7.5-11.1); PLATELET COUNT 244 10^3/uL (134-434); RBC 4.25 M/mm3 (3.60-5.2); RDW 14.8 % (11.6-15.6); WHITE BLOOD COUNT 17.6 K/mm3 (4.0-10.0)
[2022-09-07 13:21] LABS: CALCIUM 9.2 mg/dL (8.5-10.1)
[2022-09-07 13:22] LABS: BLOOD UREA NITROGEN 13.9 mg/dL (7-18)
[2022-09-07 13:25] LABS: CREATININE 0.9 mg/dL (0.55-1.3); PHOSPHOROUS 2.3 mg/dL (2.5-4.9)
[2022-09-07 13:26] LABS: BILIRUBIN,TOTAL 0.6 mg/dL (0.2-1); TOT PROT 7.4 g/dl (6.4-8.2)
[2022-09-07 13:39] LABS: ALBUMIN 3.4 g/dl (3.4-5.0)
[2022-09-07] MEDS ORDERED: ACETAMINOPHEN 1000 MG/100 ML BAG IVPB ONE (13:47)
[2022-09-07] MEDS ORDERED: dilTIAZem HCL 60 MG TABLET PO SCH (17:30)
[2022-09-07] MEDS: ATORVASTATIN CA 20 MG TABLET (FP) PO SCH (21:53)
[2022-09-07] MEDS: hydrALAZINE HCL 25 MG TABLET (FP) PO SCH (21:53)
[2022-09-08] MEDS: HEPARIN NA (PORCINE) 5,000 UNITS/ML 1ML VIAL SQ SCH ×3 (06:50→21:27)
[2022-09-08] MEDS: LEVOTHYROXINE NA 25 MCG TABLET (FP) PO SCH (06:50)
[2022-09-08] MEDS: hydrALAZINE HCL 25 MG TABLET (FP) PO SCH ×3 (06:50→21:27)
[2022-09-08] MEDS: INSULIN SLIDING SCALE (NOVOLOG) 1 VIAL SQ SCH ×4 (06:55→21:29)
[2022-09-08] MEDS ORDERED: LOSARTAN POTASSIUM 50 MG TABLET PO SCH (09:01)
[2022-09-08] MEDS: NEBIVOLOL 10 MG TABLET (FP) PO SCH (09:54)
[2022-09-08] MEDS: LOSARTAN POTASSIUM 50 MG TABLET PO SCH (09:55)
[2022-09-08] MEDS: POTASSIUM CHLORIDE TABS 20 MEQ TABLET.ER (FP) PO SCH (09:55)
[2022-09-08 09:58] LABS: HEMATOCRIT 36.5 % (32.4-45.2); HEMOGLOBIN 12.5 GM/dL (10.7-15.3); MCH 30.6 pg (25.7-33.7); MCHC 34.1 g/dl (32.0-36.0); MEAN CELL VOLUME 89.9 fl (80-96); MEAN PLT VOLUME 8.9 fl (7.5-11.1); PLATELET COUNT 240 10^3/uL (134-434); RBC 4.07 M/mm3 (3.60-5.2); WHITE BLOOD COUNT 16.7 K/mm3 (4.0-10.0)
[2022-09-08] MEDS ORDERED: dilTIAZem HCL 60 MG TABLET PO SCH (10:00)
[2022-09-08 10:21] LABS: CALCIUM 9.3 mg/dL (8.5-10.1); MAGNESIUM 2.1 mg/dL (1.8-2.4)
[2022-09-08 10:22] LABS: BLOOD UREA NITROGEN 18.3 mg/dL (7-18)
[2022-09-08 10:24] LABS: PHOSPHOROUS 2.7 mg/dL (2.5-4.9)
[2022-09-08 10:25] LABS: CREATININE 0.9 mg/dL (0.55-1.3)
[2022-09-08] MEDS: traMADol HCL 50 MG TABLET PO PRN (12:39)
[2022-09-08] MEDS ORDERED: ACETAMINOPHEN 500 MG TABLET (FP) PO PRN (16:00)
[2022-09-08] MEDS: ATORVASTATIN CA 20 MG TABLET (FP) PO SCH (21:26)
[2022-09-09] MEDS: traMADol HCL 50 MG TABLET PO PRN (02:55)
[2022-09-09] MEDS: INSULIN SLIDING SCALE (NOVOLOG) 1 VIAL SQ SCH ×3 (07:17→16:46)
[2022-09-09] MEDS: hydrALAZINE HCL 25 MG TABLET (FP) PO SCH ×2 (07:18→14:50)
[2022-09-09] MEDS: LEVOTHYROXINE NA 25 MCG TABLET (FP) PO SCH (07:18)
[2022-09-09] MEDS: HEPARIN NA (PORCINE) 5,000 UNITS/ML 1ML VIAL SQ SCH ×2 (07:18→14:50)
[2022-09-09 09:18] LABS: HEMATOCRIT 37.2 % (32.4-45.2); HEMOGLOBIN 12.1 GM/dL (10.7-15.3); MCH 29.5 pg (25.7-33.7); MCHC 32.6 g/dl (32.0-36.0); MEAN CELL VOLUME 90.4 fl (80-96); MEAN PLT VOLUME 9.3 fl (7.5-11.1); PLATELET COUNT 283 10^3/uL (134-434); RBC 4.11 M/mm3 (3.60-5.2); RDW 15.2 % (11.6-15.6); WHITE BLOOD COUNT 14.8 K/mm3 (4.0-10.0)
[2022-09-09 09:33] LABS: BLOOD UREA NITROGEN 23.6 mg/dL (7-18); CALCIUM 9.1 mg/dL (8.5-10.1); MAGNESIUM 2.3 mg/dL (1.8-2.4)
[2022-09-09] MEDS ORDERED: LIDOCAINE 5% TOPICAL PATCH TP SCH (10:15)
[2022-09-09] MEDS: NEBIVOLOL 10 MG TABLET (FP) PO SCH (10:21)
[2022-09-09] MEDS: POTASSIUM CHLORIDE TABS 20 MEQ TABLET.ER (FP) PO SCH (10:21)
[2022-09-09] MEDS: LOSARTAN POTASSIUM 50 MG TABLET PO SCH (10:21)
[2022-09-09] MEDS: ACETAMINOPHEN 500 MG TABLET (FP) PO SCH ×2 (11:45→17:27)
[2022-09-09 15:19] VITALS: BP 142/68; PULSE 65; RESP 18; TEMP 99.2
[2022-09-09] MEDS ORDERED: ONDANSETRON 4 MG/2 ML VIAL IVPUSH ONE (15:38)
[2022-09-09] MEDS ORDERED: LIDOCAINE PATCH REMOVAL MC SCH (22:00)
== END 2022-09-09 19:24 | DRG 563 ==
LOC: JER 17:46 → JERFT 17:46 → JERBED 20:18 → J6S 09-06 05:19 → OBSVTOIN 09-06 14:39
PROVIDERS: ADMIT Internal Medicine; ATTEND Internal Medicine
DX: S42.354A Nondisplaced comminuted fracture of shaft of humerus, right arm, initial encounter for closed fracture (principal); S32.511A Fracture of superior rim of right pubis, initial encounter for closed fracture; S32.591A Other specified fracture of right pubis, initial encounter for closed fracture; N17.9 Acute kidney failure, unspecified; M25.551 Pain in right hip; E78.5 Hyperlipidemia, unspecified; I10 Essential (primary) hypertension; J44.9 Chronic obstructive pulmonary disease, unspecified; I45.10 Unspecified right bundle-branch block; R94.31 Abnormal electrocardiogram [ECG] [EKG]; D72.829 Elevated white blood cell count, unspecified; R01.1 Cardiac murmur, unspecified; E87.6 Hypokalemia; M48.00 Spinal stenosis, site unspecified; E11.65 Type 2 diabetes mellitus with hyperglycemia; E11.42 Type 2 diabetes mellitus with diabetic polyneuropathy; L40.50 Arthropathic psoriasis, unspecified; R50.9 Fever, unspecified; E03.9 Hypothyroidism, unspecified; W01.0XXA Fall on same level from slipping, tripping and stumbling without subsequent striking against object, initial encounter; Y92.098 Other place in other non-institutional residence as the place of occurrence of the external cause; Z87.11 Personal history of peptic ulcer disease
CPT/HCPCS: 0241U-QW; 36415; 71045-TC-FY; 72192-TC; 73030-TC-RT-FY; 73200-TC-RT; 73502-TC-RT-FY; 80048; 80053; 81003; 82962; 83735; 84100; 84443; 85025; 85027; 85610; 85730; 87040; 93005; 93010; 93306-TC; 97116-GP; 97162-GP; 99285-25; C9803-CS; G0378; J1644; U0003; U0005